=== PATIENT | female | born 1960 | race Caucasian/White ===

== ENCOUNTER 2017-09-04 16:03 | Emergency (ER) | payer MEDICAID ==
[2017-09-04 16:42] VITALS: BP 139/79
--- NOTE | 2017-09-04 17:17 | EDM.PDOC ---
ED HPI GENERAL MEDICAL PROBLEM - General Chief Complaint: General Stated Complaint: LETHARGIC,CONFUSION Time Seen by Provider: 09/04/17 17:05 Source of Information: Reports: Patient, RN Notes Reviewed History Limitations: Reports: No Limitations - History of Present Illness INITIAL COMMENTS - FREE TEXT/NARRATIVE: 57-year-old female presents emergency department day complaint of weakness and ill feeling, shortness of breath calmly on exertion this has progressively gotten worse over the last week she does have a history of heavy alcohol use but admits that she has cut down on her alcohol consumption to 3-4 days per week with 2-3 drinks per day, she used to drink daily. Does have a history of type 1 diabetes mellitus which is in poor control however since recently started an insulin pump it has helped her blood sugars. Also has peripheral neuropathy which has made it difficult for her to walk and she has fallen more frequently over the last couple of weeks Left Abdomen Pain Score (Numeric/FACES): 7 - Related Data Allergies Allergy/AdvReac Type Severity Reaction Status Date / Time adhesive tape Allergy Cannot Verified 09/04/17 16:43 Remember Home Meds: Home Meds ALPRAZolam [Xanax] 0.5 mg PO DAILY PRN 03/09/16 [History] Cholecalciferol (Vitamin D3) [Vitamin D3] 3,000 unit PO DAILY 03/09/16 [History] Folic Acid 0.4 mg PO DAILY 03/09/16 [History] Furosemide [Lasix] 40 mg PO BID 03/09/16 [History] Insulin Aspart [NovoLOG] 0 - 12 unit SUBCUT TIDAC 03/09/16 [History] Magnesium Oxide 800 mg PO BID 03/09/16 [History] Potassium Chloride [Potassium Chloride Solution] 30 ml PO DAILY 03/09/16 [ History] Spironolactone [Aldactone] 50 mg PO DAILY 03/09/16 [History] Melatonin 5 mg PO BEDTIME PRN 03/30/16 [History] Venlafaxine HCl [Venlafaxine ER] 75 mg PO TID PRN 09/04/17 [History] traMADol [Ultram] 50 mg PO TID PRN 09/04/17 [History] Past Medical History Cardiovascular History: Reports: Hypertension Gastrointestinal History: Reports: Cirrhosis, GERD, Other (See Below) Other Gastrointestinal History: diabetic diarrhea Genitourinary History: Reports: Renal Disease 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 Neurological History: Reports: Neuropathy, Diabetic Psychiatric History: Reports: Addiction, Anxiety Endocrine/Metabolic History: Reports: Diabetes, Type I, Obesity/BMI 30+ Dermatologic History: Reports: Venous Stasis Dermatitis - Infectious Disease History Infectious Disease History: Reports: Chicken Pox, Measles, Mumps - Past Surgical History Head Surgeries/Procedures: Reports: None HEENT Surgical History: Reports: Cataract Surgery Cardiovascular Surgical History: Reports: None GI Surgical History: Reports: Colonoscopy, EGD, Other (See Below) Female Surgical History: Reports: None Endocrine Surgical History: Reports: None Neurological Surgical History: Reports: None Dermatological Surgical History: Reports: None Social & Family History - Family History Family Medical History: Noncontributory - Tobacco Use Smoking Status *Q: Never Smoker Second Hand Smoke Exposure: No - Caffeine Use Caffeine Use: Reports: Coffee, Soda, Tea - Alcohol Use Days Per Week of Alcohol Use: 0 - Recreational Drug Use Recreational Drug Use: No ED ROS GENERAL - Review of Systems Review Of Systems: See Below Constitutional: Reports: No Symptoms HEENT: Reports: No Symptoms Respiratory: Reports: Shortness of Breath. Denies: Cough, Sputum Cardiovascular: Reports: Dyspnea on Exertion GI/Abdominal: Reports: No Symptoms : Reports: No Symptoms Musculoskeletal: Reports: No Symptoms Skin: Reports: No Symptoms Neurological: Reports: No Symptoms ED EXAM, GENERAL - Physical Exam Exam: See Below Free Text/Narrative:: General: Female appears older than her stated age, tremor bilateral, alert and oriented x3 HEENT: head is atraumatic normocephalic, eyes pupils equal round reactive to light, sclera clear no conjunctivitis appreciated. Ears tympanic membranes clear and posey landmarks and light reflex are present bilaterally canals are clear. Nose no septal deviation, nares are clear, no blood present. Mouth mucosa is moist and pink no erythema or exudate noted in soft palate, tongue is midline uvula is midline, dentition is intact. Neck: Supple no thyromegaly no tracheal deviation. Nodes: Cervical nodes subclavicular nodes nontender no palpable lymphadenopathy noted. Lungs: clear to auscultation bilaterally with symmetrical respirations, no adventitious noise appreciated. CV: Regular rate and rhythm S1 and S2 appreciated no murmurs rubs or gallops noted. Abdomen: Soft, nontender, no palpable masses or organomegaly appreciated, no distention no guarding bowel sounds are present, . Neuro: Cranial nerves II through XII grossly intact Skin: Warm and dry, intact Extremities: No lower extremity edema appreciated, Course - Vital Signs Last Recorded V/S: Last Vital Signs Temp 98.4 F 09/04/17 16:41 Pulse 105 H 09/04/17 16:41 Resp 20 09/04/17 16:41 BP 139/79 09/04/17 16:41 Pulse Ox 91 L 09/04/17 16:41 - Orders/Labs/Meds Orders: Active Orders 24 hr Category Date Time Status Cardiac Monitoring [RC] .As Directed Care 09/04/17 17:13 Active EKG Documentation Completion [RC] ASDIRECTED Care 09/04/17 17:14 Active Chest 2V [CR] Stat Exams 09/04/17 17:14 Taken CULTURE URINE [RM] Urgent Lab 09/04/17 18:10 Ordered EKG 12 Lead [EK] Stat Ther 09/04/17 17:14 Ordered Labs: Laboratory Tests 09/04/17 09/04/17 09/04/17 Range/Units 17:13 17:13 17:13 WBC 9.1 (4.5-11.0) K/uL RBC 3.81 (3.30-5.50) M/uL Hgb 12.2 D (12.0-15.0) g/dL Hct 35.8 L (36.0-48.0) % MCV 94 (80-98) fL MCH 32 H (27-31) pg MCHC 34 (32-36) % Plt Count 117 L (150-400) K/uL Neut % (Auto) 74 H (36-66) % Lymph % (Auto) 7 L (24-44) % [place] % (Auto) 19 H (2-6) % Eos % (Auto) 0 L (2-4) % Baso % (Auto) 0 (0-1) % Lactic Acid 2.4 H (0.4-2.0) mmol/L Troponin I < 0.017 (0.000-0.056) ng/mL NT-Pro-B Natriuret Pep 334 H (5-125) pg/mL Urine Color Urine Appearance Urine pH (4.5-8.0) Ur Specific [place] (1.008-1.030) Urine Protein (NEGATIVE) mg/dL Urine Glucose (UA) (NEGATIVE) mg/dL Urine Ketones (NEGATIVE) mg/dL Urine Occult Blood (NEGATIVE) Urine Nitrite (NEGATIVE) Urine Bilirubin (NEGATIVE) Urine Urobilinogen (NORMAL) mg/dL Ur Leukocyte Esterase (NEGATIVE) Urine RBC (0-5) Urine WBC (0-5) Ur Epithelial Cells Amorphous Sediment Urine Bacteria Urine Mucus Ethyl Alcohol mg/dL 09/04/17 09/04/17 Range/Units 17:14 17:37 WBC (4.5-11.0) K/uL RBC (3.30-5.50) M/uL Hgb (12.0-15.0) g/dL Hct (36.0-48.0) % MCV (80-98) fL MCH (27-31) pg MCHC (32-36) % Plt Count (150-400) K/uL Neut % (Auto) (36-66) % Lymph % (Auto) (24-44) % [place] % (Auto) (2-6) % Eos % (Auto) (2-4) % Baso % (Auto) (0-1) % Lactic Acid (0.4-2.0) mmol/L Troponin I (0.000-0.056) ng/mL NT-Pro-B Natriuret Pep (5-125) pg/mL Urine Color [place] Urine Appearance Cloudy Urine pH 5.0 (4.5-8.0) Ur Specific [place] 1.020 (1.008-1.030) Urine Protein Negative (NEGATIVE) mg/dL Urine Glucose (UA) 1000 H (NEGATIVE) mg/dL Urine Ketones 15 H (NEGATIVE) mg/dL Urine Occult Blood Moderate (NEGATIVE) Urine Nitrite Negative (NEGATIVE) Urine Bilirubin Negative (NEGATIVE) Urine Urobilinogen Normal (NORMAL) mg/dL Ur Leukocyte Esterase Small (NEGATIVE) Urine RBC 5-10 H (0-5) Urine WBC Packed H (0-5) Ur Epithelial Cells Moderate Amorphous Sediment Few Urine Bacteria Many Urine Mucus Few Ethyl Alcohol < 3 mg/dL Departure - Departure Time of Disposition: 18:22 Disposition: Home, Self-Care 01 Condition: Good Clinical Impression: Urinary tract infection Qualifiers: Urinary tract infection type: acute cystitis Hematuria presence: with hematuria Qualified Code(s): N30.01 - Acute cystitis with hematuria - Discharge Information Referrals: PCP,None [Primary Care Provider] - Forms: ED Department Discharge Additional Instructions: Take full course of antibiotics, Please followup with your primary care provider in 3-5 days if not better, please call return to the emergency department with worsening of symptoms. - My Orders Last 24 Hours: My Active Orders 09/04/17 17:13 Cardiac Monitoring [RC] .As Directed 09/04/17 17:14 EKG Documentation Completion [RC] ASDIRECTED Chest 2V [CR] Stat EKG 12 Lead [EK] Stat 09/04/17 18:10 CULTURE URINE [RM] Urgent - Assessment/Plan Last 24 Hours: My Active Orders 09/04/17 17:13 Cardiac Monitoring [RC] .As Directed 09/04/17 17:14 EKG Documentation Completion [RC] ASDIRECTED Chest 2V [CR] Stat EKG 12 Lead [EK] Stat 09/04/17 18:10 CULTURE URINE [RM] Urgent Plan: Assessment Acuity = acute Site and laterality = urinary tract infection complicated patient with diabetes mellitus type 1 and chronic alcohol abuse and dependence Etiology = probable bacterial cause Manifestations = none Location of injury = Home Lab values = platelets low at 112 consistent with thrombocytopenia lactic acid elevated 2.4 consistent lactic acidosis BNP elevated at 334 consistent mild fluid overload urinalysis reveals 15 ketones consistent with ketonuria, 5-10 rbc 's consistent hematuria and packed WBCs consistent pyuria cultures pending chest x-ray I did review films myself I cannot appreciate any acute process, the official read from radiology is pending Plan I did review lab work and urine as well as chest x-ray results with her she has multiple medical problems as well as comorbidities the alcohol use as well as the peripheral neuropathy do not help the situation I discussed both these issues with her I am going to treat her with levofloxacin for urinary tract infection however follow-up with her primary care in 3-5 days for reevaluation Patient was in agreement with the plan all questions were answered, they were instructed to return to the emergency department or call for worsening symptoms. This note was dictated using [employer] voice recognition software please call with any questions.
--- NOTE | 2017-09-06 08:49 | CR ---
Chest 2V INDICATION: Short of breath COMPARISON: None FINDINGS: 2 portable views of the chest. Heart size normal. No focal infiltrates or signs of pulmonary edema. Small right pleural effusion. There is a fracture of the right eighth rib which is slightly displaced. Old left rib fracture. ER notified with discrepancy function.
== END 2017-09-04 19:05 | disposition home or self-care (01) ==
LOC: JP.ED 16:03
DX: N30.01 Acute cystitis with hematuria (principal); I10 Essential (primary) hypertension; E10.9 Type 1 diabetes mellitus without complications; Z79.899 Other long term (current) drug therapy; Z91.048 Other nonmedicinal substance allergy status
CPT/HCPCS: 36415; 71020; 81001; 83605; 83880; 84484; 85025; 87086; 87088; 87186; 93005; 99284; G0480

== ENCOUNTER 2017-09-04 22:49 | Emergency (ER) | payer MEDICAID ==
[2017-09-04] MEDS ORDERED: Insulin Regular, Human 100 Units/ML 10 ML Vial IVPUSH ONE (23:14)
--- NOTE | 2017-09-04 23:21 | EDM.PDOC ---
ED HPI GENERAL MEDICAL PROBLEM - General Chief Complaint: Diabetic Complaint Stated Complaint: HIGH BLOOD SUGARS Time Seen by Provider: 09/04/17 23:05 Source of Information: Reports: Patient, EMS, Provider History Limitations: Reports: Altered Mental Status - History of Present Illness INITIAL COMMENTS - FREE TEXT/NARRATIVE: 57-year-old chronic alcoholic, type I diabetic, was in the emergency room earlier today after a fall and was found to have a UTI. Treatment was started but after getting home her family called back to the emergency room and asked if they could take her to detox. Officer felt the patient was physically able to be admitted for detox. However shortly after arriving, during her admitting procedure she was found to have a "high" glucose level, and the staff felt she was hallucinating and had a "seizure". EMS was called and she was brought in for evaluation. Her insulin pump has been nonfunctioning for the past 12 hours. She is not running fevers or chills, on arrival she was lucid, answering questions appropriately but was obviously anxious and had a fairly significant resting tremor. Severity: Moderate Associated Symptoms: Reports: Confusion (Mild intermittent confusion), Seizure, Other (Tremor). Denies: Fever/Chills, Headaches, Nausea/Vomiting right lower back Pain Score (Numeric/FACES): 7 - Related Data Allergies Allergy/AdvReac Type Severity Reaction Status Date / Time adhesive tape Allergy Cannot Verified 09/04/17 23:14 Remember Home Meds: Home Meds ALPRAZolam [Xanax] 0.5 mg PO DAILY PRN 03/09/16 [History] Cholecalciferol (Vitamin D3) [Vitamin D3] 3,000 unit PO DAILY 03/09/16 [History] Folic Acid 0.4 mg PO DAILY 03/09/16 [History] Furosemide [Lasix] 40 mg PO BID 03/09/16 [History] Insulin Aspart [NovoLOG] 0 - 12 unit SUBCUT TIDAC 03/09/16 [History] Magnesium Oxide 800 mg PO BID 03/09/16 [History] Potassium Chloride [Potassium Chloride Solution] 30 ml PO DAILY 03/09/16 [ History] Spironolactone [Aldactone] 50 mg PO DAILY 03/09/16 [History] Melatonin 5 mg PO BEDTIME PRN 03/30/16 [History] Venlafaxine HCl [Venlafaxine ER] 75 mg PO TID PRN 09/04/17 [History] traMADol [Ultram] 50 mg PO TID PRN 09/04/17 [History] Past Medical History HEENT History: Reports: None Cardiovascular History: Reports: Hypertension Gastrointestinal History: Reports: Cirrhosis, GERD, Other (See Below) Other Gastrointestinal History: diabetic diarrhea Genitourinary History: Reports: Renal Disease 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 Neurological History: Reports: Neuropathy, Diabetic Psychiatric History: Reports: Addiction, Anxiety Endocrine/Metabolic History: Reports: Diabetes, Type I, Obesity/BMI 30+ Dermatologic History: Reports: Venous Stasis Dermatitis - Infectious Disease History Infectious Disease History: Reports: Chicken Pox, Measles, Mumps - Past Surgical History Head Surgeries/Procedures: Reports: None HEENT Surgical History: Reports: Cataract Surgery Cardiovascular Surgical History: Reports: None GI Surgical History: Reports: Colonoscopy, EGD, Other (See Below) Female Surgical History: Reports: None Endocrine Surgical History: Reports: None Neurological Surgical History: Reports: None Dermatological Surgical History: Reports: None Social & Family History - Family History Family Medical History: Noncontributory - Tobacco Use Smoking Status *Q: Never Smoker Second Hand Smoke Exposure: No - Caffeine Use Caffeine Use: Reports: Coffee, Soda, Tea - Alcohol Use Days Per Week of Alcohol Use: 0 - Recreational Drug Use Recreational Drug Use: No ED ROS GENERAL - Review of Systems Review Of Systems: See Below Constitutional: Reports: Malaise, Decreased Appetite. Denies: Fever, Chills Respiratory: Denies: Shortness of Breath Cardiovascular: Denies: Chest Pain GI/Abdominal: Denies: Abdominal Pain, Nausea, Vomiting : Reports: Other (Diagnosis with UTI earlier tonight) Skin: Denies: Bruising Neurological: Reports: Confusion, Difficulty Walking. Denies: Dizziness, Headache ED EXAM GENERAL NO PERIP PULSE - Physical Exam Exam: See Below Exam Limited By: No Limitations General Appearance: Alert, No Apparent Distress, Anxious Eye Exam: Bilateral Eye: EOMI Respiratory/Chest: No Respiratory Distress, Lungs Clear Cardiovascular: Regular Rate, Rhythm, Tachycardia GI/Abdominal: Soft Neurological: Alert, Confused (Patient is confused to time of day, mild confusion on where she is at but has a very clear past history memory.) Skin Exam: Warm, Dry Course - Vital Signs Last Recorded V/S: Last Vital Signs Temp 97.9 F 09/05/17 01:51 Pulse 112 H 09/05/17 01:51 Resp 26 H 09/05/17 01:51 BP 106/58 L 09/05/17 01:51 Pulse Ox 94 L 09/05/17 01:51 - Orders/Labs/Meds Orders: Active Orders 24 hr Category Date Time Status Insert Paredes Catheter [Insert Urinary Catheter] [OM.PC] Care 09/05/17 02:00 Ordered Q24H Urinary Catheter Assessment [RC] ASDIRECTED Care 09/05/17 01:57 Active GLUCOSE POC LAB TO COLLECT [POC] Stat Lab 09/05/17 01:55 Ordered Labs: Laboratory Tests 09/04/17 Range/Units 23:40 Sodium 119 L* (140-148) mmol/L Potassium 3.9 (3.6-5.2) mmol/L Chloride 80 L (100-108) mmol/L Carbon Dioxide 21 (21-32) mmol/L Anion Gap 21.9 H (5.0-14.0) mmol/L BUN 42 H D (7-18) mg/dL Creatinine 1.6 H D (0.6-1.0) mg/dL Est Cr Clr Drug Dosing TNP Estimated GFR (MDRD) 33 L (>60) Glucose 808 H* (74-106) mg/dL Calcium 9.1 (8.5-10.1) mg/dL Magnesium 2.1 (1.8-2.4) mg/dL Total Bilirubin 1.6 H D (0.2-1.0) mg/dL AST 58 H D (15-37) U/L ALT 64 D (12-78) U/L Alkaline Phosphatase 144 H (46-116) U/L Total Protein 6.9 (6.4-8.2) g/dL Albumin 2.9 L (3.4-5.0) g/dL Globulin 4.0 H (2.3-3.5) g/dL Albumin/Globulin Ratio 0.7 L (1.2-2.2) Meds: Medications Discontinued Medications Generic Name Dose Route Start Last Admin Trade Name Freq PRN Reason Stop Dose Admin Haloperidol Lactate 5 mg 09/05/17 01:55 09/05/17 02:06 Haldol IVPUSH 09/05/17 01:56 5 mg ONETIME ONE Administration Sodium Chloride 1,000 mls @ 250 mls/hr 09/05/17 00:15 09/05/17 01:37 Normal Saline IV 999 mls/hr ASDIRECTED MENDEZ Infusion Sodium Chloride 1,000 mls @ 999 mls/hr 09/05/17 01:39 09/05/17 01:40 Normal Saline IV 09/05/17 02:39 999 mls/hr .BOLUS ONE Administration Insulin Detemir 20 unit 09/04/17 23:27 09/04/17 23:32 Levemir SUBCUT 09/04/17 23:28 20 units ONETIME ONE Administration Insulin Human Regular 12 unit 09/04/17 23:14 09/04/17 23:25 Novolin R IVPUSH 09/04/17 23:15 12 units ONETIME ONE Administration Protocol Insulin Human Regular 12 unit 09/05/17 02:05 09/05/17 02:09 Novolin R IVPUSH 09/05/17 02:06 12 units ONETIME ONE Administration Protocol Lorazepam 1 mg 09/05/17 00:24 09/05/17 00:34 Ativan IVPUSH 09/05/17 00:25 1 mg ONETIME ONE Administration Lorazepam 2 mg 09/05/17 01:20 09/05/17 01:37 Ativan IVPUSH 09/05/17 01:21 2 mg ONETIME ONE Administration - Re-Assessments/Exams Free Text/Narrative Re-Assessment/Exam: 09/04/17 23:54 Initial [id number] glucose was over 500. According to the patient she gets a basal 0.75 units per hour dose of long-acting insulin which she has not gotten for the past 12-18 hours. She also takes Humalog 3 times a day. Review of earlier records shows no chemistry panel her magnesium was drawn so these were obtained, the patient was given 12 units of Humalog IV, and 16 units of Levemir subcutaneously. 09/05/17 01:24 Chemistry panel revealed a glucose of 808, anion gap 21.9, sodium 119. Patient was becoming more agitated and confused so was given 1 mg of Ativan IV and normal saline was started. Intent was to get her glucose better controlled, her sodium normalized so she could get back to detox however she became more agitated so transfer to [facility] was arranged. 09/05/17 01:42 After the conversation with the hospitalist at [facility], the patient was aggressively bolused with an additional 1-1/2 L of normal saline over the next 45 minutes to an hour. She was also given 2 mg of Ativan IV. Patient was arranged for transportation. Departure - Departure Time of Disposition: 02:57 Disposition: DC/Tfer to Other 70 Condition: Poor Clinical Impression: Hyperglycemia, Alcohol withdrawal delirium - Discharge Information Referrals: PCP,None [Primary Care Provider] - Forms: ED Department Discharge - My Orders Last 24 Hours: My Active Orders 09/05/17 01:55 GLUCOSE POC LAB TO COLLECT [POC] Stat 09/05/17 01:57 Urinary Catheter Assessment [RC] ASDIRECTED 09/05/17 02:00 Insert Paredes Catheter [Insert Urinary Catheter] [OM.PC] Q24H - Assessment/Plan Last 24 Hours: My Active Orders 09/05/17 01:55 GLUCOSE POC LAB TO COLLECT [POC] Stat 09/05/17 01:57 Urinary Catheter Assessment [RC] ASDIRECTED 09/05/17 02:00 Insert Paredes Catheter [Insert Urinary Catheter] [OM.PC] Q24H
[2017-09-04] MEDS ORDERED: Insulin Detemir 100 Units/ML 3 ML Pen SUBCUT ONE (23:27)
[2017-09-05] MEDS ORDERED: Sodium Chloride 0.9% 1,000 ML IV SCH (00:15)
[2017-09-05] MEDS ORDERED: LORazepam 2 MG/ML MDV IVPUSH ONE ×2 (00:24→01:20)
[2017-09-05] MEDS ORDERED: Sodium Chloride 0.9% 1,000 ML IV ONE (01:39)
[2017-09-05 01:52] VITALS: BP 106/58
[2017-09-05] MEDS ORDERED: Haloperidol Lactate 5 MG/ML SDV IVPUSH ONE (01:55)
[2017-09-05] MEDS ORDERED: Insulin Regular, Human 100 Units/ML 10 ML Vial IVPUSH ONE (02:05)
== END 2017-09-05 02:35 | disposition other institution (70) ==
LOC: JP.ED 22:49
DX: E10.65 Type 1 diabetes mellitus with hyperglycemia (principal); K21.9 Gastro-esophageal reflux disease without esophagitis; I10 Essential (primary) hypertension; Z91.048 Other nonmedicinal substance allergy status; F10.231 Alcohol dependence with withdrawal delirium; N30.01 Acute cystitis with hematuria; E10.9 Type 1 diabetes mellitus without complications; Z79.899 Other long term (current) drug therapy
CPT/HCPCS: 36415; 51702; 71020; 80053; 81001; 82962; 83605; 83735; 83880; 84484; 85025; 87086; 87088; 87186; 93005; 96361; 96374; 96375; 96376; 99284; 99285; A9270; G0480; J1630; J2060; J7040

== ENCOUNTER 2019-03-20 21:38 | Inpatient (IN) | payer MEDICAID, MEDICARE ==
--- NOTE | 2019-03-20 22:16 | EDM.PDOC ---
ED HPI GENERAL MEDICAL PROBLEM - General Chief Complaint: General Stated Complaint: MEDICAL Time Seen by Provider: 03/20/19 22:04 Source of Information: Reports: Patient, Old Records, RN Notes Reviewed History Limitations: Reports: Intoxication - History of Present Illness INITIAL COMMENTS - FREE TEXT/NARRATIVE: 58-year-old female presents emergency department today via EMS services she has a known history of alcoholic liver cirrhosis has been on 40 binge having difficulty maintaining her blood sugars called the ambulance because she felt tremulous. She does admit that she would like to go to detox and would like to seek treatment or alcohol use - Related Data Allergies Allergy/AdvReac Type Severity Reaction Status Date / Time adhesive tape Allergy Cannot Verified 09/04/17 23:14 Remember lorazepam [From Ativan] Allergy Agitation Verified 09/05/17 07:17 Home Meds: Home Meds ALPRAZolam [Xanax] 0.5 mg PO DAILY PRN 03/09/16 [History] Cholecalciferol (Vitamin D3) [Vitamin D3] 3,000 unit PO DAILY 03/09/16 [History] Insulin Aspart [NovoLOG] 0 - 12 unit SUBCUT TIDAC 03/09/16 [History] Magnesium Oxide 800 mg PO BID 03/09/16 [History] Past Medical History Cardiovascular History: Reports: Hypertension Gastrointestinal History: Reports: Cirrhosis, GERD, Other (See Below) Other Gastrointestinal History: diabetic diarrhea Genitourinary History: Reports: Renal Disease 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 Musculoskeletal History: Reports: Back Pain, Chronic Neurological History: Reports: Neuropathy, Diabetic Psychiatric History: Reports: Addiction, Anxiety Endocrine/Metabolic History: Reports: Diabetes, Type I, Obesity/BMI 30+ Dermatologic History: Reports: Venous Stasis Dermatitis - Infectious Disease History Infectious Disease History: Reports: Chicken Pox, Measles, Mumps - Past Surgical History Head Surgeries/Procedures: Reports: None HEENT Surgical History: Reports: Cataract Surgery Cardiovascular Surgical History: Reports: None GI Surgical History: Reports: Colonoscopy, EGD, Other (See Below) Female Surgical History: Reports: None Endocrine Surgical History: Reports: None Neurological Surgical History: Reports: None Dermatological Surgical History: Reports: None Social & Family History - Family History Family Medical History: Noncontributory - Tobacco Use Smoking Status *Q: Never Smoker - Caffeine Use Caffeine Use: Reports: Coffee, Soda, Tea - Alcohol Use Days Per Week of Alcohol Use: 4 Number of Drinks Per Day: 10 Total Drinks Per Week: 40 Date of Last Drink: 03/19/19 - Recreational Drug Use Recreational Drug Use: No ED ROS GENERAL - Review of Systems Review Of Systems: See Below Constitutional: Reports: No Symptoms HEENT: Reports: No Symptoms Respiratory: Reports: No Symptoms Cardiovascular: Reports: No Symptoms GI/Abdominal: Reports: No Symptoms : Reports: No Symptoms Musculoskeletal: Reports: No Symptoms Skin: Reports: No Symptoms Neurological: Reports: Confusion, Tremors ED EXAM, GENERAL - Physical Exam Exam: See Below Exam Limited By: Intoxication General Appearance: Alert, No Apparent Distress Eye Exam: Bilateral Eye: Normal Inspection Head: Atraumatic, Normocephalic Neck: Normal Inspection, Supple, Non-Tender, Full Range of Motion Respiratory/Chest: No Respiratory Distress, Lungs Clear, Normal Breath Sounds, No Accessory Muscle Use, Chest Non-Tender Cardiovascular: Normal Peripheral Pulses, No Murmur, Tachycardia GI/Abdominal: Soft, Distended. No: Guarding, Rigid, Rebound, Tender Extremities: Normal Inspection, Normal Range of Motion, Non-Tender Course - Vital Signs Last Recorded V/S: Last Vital Signs Temp 96.0 F 03/20/19 21:48 Pulse 60 03/20/19 23:19 Resp 23 H 03/20/19 23:04 BP 101/43 L 03/20/19 23:19 Pulse Ox 97 03/20/19 23:04 - Orders/Labs/Meds Orders: Active Orders 24 hr Category Date Time Status Peripheral IV Care [RC] . DIRECTED Care 03/20/19 22:54 Active LIPASE [CHEM] Stat Lab 03/20/19 23:40 Ordered Lactated Ringers [Ringers, Lactated] 1,000 ml Med 03/20/19 22:54 Active IV BOLUS Sodium Chloride 0.9% [Saline Flush] Med 03/20/19 22:54 Active 10 ml FLUSH ASDIRECTED PRN Peripheral IV Insertion Adult [OM.PC] Urgent Oth 03/20/19 22:54 Ordered Medication Orders Lactated Ringer's (Ringers, Lactated) 1,000 mls @ 250 mls/hr IV BOLUS ONE Stop: 03/21/19 02:53 Last Admin: 03/20/19 23:05 Dose: 250 mls/hr Sodium Chloride (Saline Flush) 10 ml FLUSH ASDIRECTED PRN PRN Reason: Keep Vein Open Last Admin: 03/20/19 23:09 Dose: 10 ml Labs: Laboratory Tests 03/20/19 03/20/19 03/20/19 Range/Units 22:24 22:24 22:24 WBC 5.3 (4.5-11.0) K/uL RBC 3.65 (3.30-5.50) M/uL Hgb 12.2 (12.0-15.0) g/dL Hct 37.3 (36.0-48.0) % MCV 102 H (80-98) fL MCH 33 H (27-31) pg MCHC 33 (32-36) % Plt Count 70 L (150-400) K/uL Neut % (Auto) 83 H (36-66) % Lymph % (Auto) 9 L (24-44) % [place] % (Auto) 8 H (2-6) % Eos % (Auto) 0 L (2-4) % Baso % (Auto) 0 (0-1) % PT (9.5-12.0) sec INR (0.80-1.20) Sodium 125 L (140-148) mmol/L Potassium 4.9 (3.6-5.2) mmol/L Chloride 81 L (100-108) mmol/L Carbon Dioxide 11 L (21-32) mmol/L Anion Gap 37.9 H (5.0-14.0) mmol/L BUN 14 D (7-18) mg/dL Creatinine 2.1 H (0.6-1.0) mg/dL Est Cr Clr Drug Dosing 28.74 mL/min Estimated GFR (MDRD) 24 L (>60) Glucose 377 H (74-106) mg/dL Lactic Acid (0.4-2.0) mmol/L Calcium 7.9 L (8.5-10.1) mg/dL Total Bilirubin 2.8 H D (0.2-1.0) mg/dL AST 163 H D (15-37) U/L ALT 79 H (12-78) U/L Alkaline Phosphatase 194 H (46-116) U/L Troponin I (0.000-0.056) ng/mL Total Protein 7.5 (6.4-8.2) g/dL Albumin 2.7 L (3.4-5.0) g/dL Globulin 4.8 H (2.3-3.5) g/dL Albumin/Globulin Ratio 0.6 L (1.2-2.2) TSH, Ultra Sensitive (0.358-3.740) uIU/mL Urine Color Urine Appearance Urine pH (4.5-8.0) Ur Specific [place] (1.008-1.030) Urine Protein (NEGATIVE) mg/dL Urine Glucose (UA) (NEGATIVE) mg/dL Urine Ketones (NEGATIVE) mg/dL Urine Occult Blood (NEGATIVE) Urine Nitrite (NEGATIVE) Urine Bilirubin (NEGATIVE) Urine Urobilinogen (NORMAL) mg/dL Ur Leukocyte Esterase (NEGATIVE) Urine RBC (0-5) Urine WBC (0-5) Ur Epithelial Cells Amorphous Sediment Urine Bacteria Urine Mucus Urine Opiates Screen (NEGATIVE) Ur Oxycodone Screen (NEGATIVE) Urine Methadone Screen (NEGATIVE) Ur Propoxyphene Screen (NEGATIVE) Ur Barbiturates Screen (NEGATIVE) Ur Tricyclics Screen (NEGATIVE) Ur Phencyclidine Scrn (NEGATIVE) Ur Amphetamine Screen (NEGATIVE) U Methamphetamines Scrn (NEGATIVE) Urine MDMA Screen (NEGATIVE) U Benzodiazepines Scrn (NEGATIVE) U Cocaine Metab Screen (NEGATIVE) U Marijuana (THC) Screen (NEGATIVE) Ethyl Alcohol 211 mg/dL 03/20/19 03/20/19 03/20/19 Range/Units 22:24 22:24 22:24 WBC (4.5-11.0) K/uL RBC (3.30-5.50) M/uL Hgb (12.0-15.0) g/dL Hct (36.0-48.0) % MCV (80-98) fL MCH (27-31) pg MCHC (32-36) % Plt Count (150-400) K/uL Neut % (Auto) (36-66) % Lymph % (Auto) (24-44) % [place] % (Auto) (2-6) % Eos % (Auto) (2-4) % Baso % (Auto) (0-1) % PT > 100.0 H (9.5-12.0) sec INR (0.80-1.20) Sodium (140-148) mmol/L Potassium (3.6-5.2) mmol/L Chloride (100-108) mmol/L Carbon Dioxide (21-32) mmol/L Anion Gap (5.0-14.0) mmol/L BUN (7-18) mg/dL Creatinine (0.6-1.0) mg/dL Est Cr Clr Drug Dosing mL/min Estimated GFR (MDRD) (>60) Glucose (74-106) mg/dL Lactic Acid (0.4-2.0) mmol/L Calcium (8.5-10.1) mg/dL Total Bilirubin (0.2-1.0) mg/dL AST (15-37) U/L ALT (12-78) U/L Alkaline Phosphatase (46-116) U/L Troponin I 0.048 (0.000-0.056) ng/mL Total Protein (6.4-8.2) g/dL Albumin (3.4-5.0) g/dL Globulin (2.3-3.5) g/dL Albumin/Globulin Ratio (1.2-2.2) TSH, Ultra Sensitive 2.657 (0.358-3.740) uIU/mL Urine Color Urine Appearance Urine pH (4.5-8.0) Ur Specific [place] (1.008-1.030) Urine Protein (NEGATIVE) mg/dL Urine Glucose (UA) (NEGATIVE) mg/dL Urine Ketones (NEGATIVE) mg/dL Urine Occult Blood (NEGATIVE) Urine Nitrite (NEGATIVE) Urine Bilirubin (NEGATIVE) Urine Urobilinogen (NORMAL) mg/dL Ur Leukocyte Esterase (NEGATIVE) Urine RBC (0-5) Urine WBC (0-5) Ur Epithelial Cells Amorphous Sediment Urine Bacteria Urine Mucus Urine Opiates Screen (NEGATIVE) Ur Oxycodone Screen (NEGATIVE) Urine Methadone Screen (NEGATIVE) Ur Propoxyphene Screen (NEGATIVE) Ur Barbiturates Screen (NEGATIVE) Ur Tricyclics Screen (NEGATIVE) Ur Phencyclidine Scrn (NEGATIVE) Ur Amphetamine Screen (NEGATIVE) U Methamphetamines Scrn (NEGATIVE) Urine MDMA Screen (NEGATIVE) U Benzodiazepines Scrn (NEGATIVE) U Cocaine Metab Screen (NEGATIVE) U Marijuana (THC) Screen (NEGATIVE) Ethyl Alcohol mg/dL 03/20/19 03/20/19 03/20/19 Range/Units 22:49 22:49 23:02 WBC (4.5-11.0) K/uL RBC (3.30-5.50) M/uL Hgb (12.0-15.0) g/dL Hct (36.0-48.0) % MCV (80-98) fL MCH (27-31) pg MCHC (32-36) % Plt Count (150-400) K/uL Neut % (Auto) (36-66) % Lymph % (Auto) (24-44) % [place] % (Auto) (2-6) % Eos % (Auto) (2-4) % Baso % (Auto) (0-1) % PT (9.5-12.0) sec INR (0.80-1.20) Sodium (140-148) mmol/L Potassium (3.6-5.2) mmol/L Chloride (100-108) mmol/L Carbon Dioxide (21-32) mmol/L Anion Gap (5.0-14.0) mmol/L BUN (7-18) mg/dL Creatinine (0.6-1.0) mg/dL Est Cr Clr Drug Dosing mL/min Estimated GFR (MDRD) (>60) Glucose (74-106) mg/dL Lactic Acid 19.7 H (0.4-2.0) mmol/L Calcium (8.5-10.1) mg/dL Total Bilirubin (0.2-1.0) mg/dL AST (15-37) U/L ALT (12-78) U/L Alkaline Phosphatase (46-116) U/L Troponin I (0.000-0.056) ng/mL Total Protein (6.4-8.2) g/dL Albumin (3.4-5.0) g/dL Globulin (2.3-3.5) g/dL Albumin/Globulin Ratio (1.2-2.2) TSH, Ultra Sensitive (0.358-3.740) uIU/mL Urine Color Yellow Urine Appearance Cloudy Urine pH 5.0 (4.5-8.0) Ur Specific [place] 1.025 (1.008-1.030) Urine Protein Negative (NEGATIVE) mg/dL Urine Glucose (UA) Normal (NEGATIVE) mg/dL Urine Ketones Negative (NEGATIVE) mg/dL Urine Occult Blood Large (NEGATIVE) Urine Nitrite Negative (NEGATIVE) Urine Bilirubin Negative (NEGATIVE) Urine Urobilinogen 4 (NORMAL) mg/dL Ur Leukocyte Esterase Negative (NEGATIVE) Urine RBC 0-5 (0-5) Urine WBC 0-5 (0-5) Ur Epithelial Cells Moderate Amorphous Sediment Not seen Urine Bacteria Many Urine Mucus Not seen Urine Opiates Screen Presumptive positive H (NEGATIVE) Ur Oxycodone Screen Negative (NEGATIVE) Urine Methadone Screen Negative (NEGATIVE) Ur Propoxyphene Screen Negative (NEGATIVE) Ur Barbiturates Screen Negative (NEGATIVE) Ur Tricyclics Screen Negative (NEGATIVE) Ur Phencyclidine Scrn Negative (NEGATIVE) Ur Amphetamine Screen Negative (NEGATIVE) U Methamphetamines Scrn Negative (NEGATIVE) Urine MDMA Screen Negative (NEGATIVE) U Benzodiazepines Scrn Negative (NEGATIVE) U Cocaine Metab Screen Negative (NEGATIVE) U Marijuana (THC) Screen Negative (NEGATIVE) Ethyl Alcohol mg/dL Meds: Medications Generic Name Dose Route Start Last Admin Trade Name Freq PRN Reason Stop Dose Admin Lactated Ringer's 1,000 mls @ 250 mls/hr 03/20/19 22:54 03/20/19 23:05 Ringers, Lactated IV 03/21/19 02:53 250 mls/hr BOLUS ONE Administration Sodium Chloride 10 ml 03/20/19 22:54 03/20/19 23:09 Saline Flush FLUSH 10 ml ASDIRECTED PRN Administration Keep Vein Open Discontinued Medications Generic Name Dose Route Start Last Admin Trade Name Freq PRN Reason Stop Dose Admin Gabapentin 300 mg 03/20/19 23:29 Neurontin PO 03/20/19 23:30 ONETIME ONE Lorazepam 1 mg 03/20/19 23:28 Ativan IVPUSH 03/20/19 23:29 ONETIME ONE Departure - Departure Time of Disposition: 23:45 Disposition: Admitted As Inpatient 67 Condition: Poor Clinical Impression: Alcohol withdrawal delirium - Discharge Information Referrals: PCP,None [Primary Care Provider] - Forms: ED Department Discharge - My Orders Last 24 Hours: My Active Orders 03/20/19 22:54 Peripheral IV Care [RC] . DIRECTED Lactated Ringers [Ringers, Lactated] 1,000 ml IV BOLUS Sodium Chloride 0.9% [Saline Flush] 10 ml FLUSH ASDIRECTED PRN Peripheral IV Insertion Adult [OM.PC] Urgent 03/20/19 23:40 LIPASE [CHEM] Stat - Assessment/Plan Last 24 Hours: My Active Orders 03/20/19 22:54 Peripheral IV Care [RC] . DIRECTED Lactated Ringers [Ringers, Lactated] 1,000 ml IV BOLUS Sodium Chloride 0.9% [Saline Flush] 10 ml FLUSH ASDIRECTED PRN Peripheral IV Insertion Adult [OM.PC] Urgent 03/20/19 23:40 LIPASE [CHEM] Stat Plan: Assessment Acuity = acute Site and laterality = alcohol intoxication complicated with alcoholic hepatic cirrhosis Etiology = EtOH Manifestations = liver failure Location of injury = Home Lab values = platelets low at 78 consistent thrombocytopenia, PT and INR not measurable sodium low at 125 consistent hyponatremia creatinine 2.1 consistent with chronic renal failure stage G for glucose elevated 377 consistent hyperglycemia lactic acids elevated 19.7 with lactic acidosis calcium low at 7.9 consistent hypocalcemia total bilirubin elevated 2.8 consistent hyperbilirubinemia AST elevated 163 LT elevated 79 consistent elevated liver enzymes albumin low at 2.8 consistent hypoalbuminemia troponin is negative TSH normal 265 urine unremarkable urine drug screen positive for opiates alcohol level was 211 Plan Called discussed case hospitalist labor relations manager at 22/12/39 he agreed to come and evaluate patient emergency department for admission This note was dictated using [employer] voice recognition software please call with any questions on syntax or grammar.
[2019-03-20] MEDS ORDERED: Lactated Ringers 1,000 ML IV ONE (22:54)
[2019-03-20] MEDS ORDERED: Sodium Chloride 0.9% 10 ML Syringe FLUSH PRN (22:54)
[2019-03-20] MEDS ORDERED: LORazepam 2 MG/ML SDV IVPUSH ONE (23:28)
[2019-03-20] MEDS ORDERED: Gabapentin 300 MG Cap PO ONE (23:29)
--- NOTE | 2019-03-21 00:52 | PCM.HP ---
H&P History of Present Illness - General Date of Service: 03/21/19 Admit Problem/Dx: Admission Diagnosis/Problem Admission Diagnosis/Problem Alcohol withdrawal delirium Source of Information: Patient, Provider History Limitations: Reports: Altered Mental Status - History of Present Illness Initial Comments - Free Text/Narative: CC: just.....confused HPI: Kate presents to the emergency room tonight with a chief complaint of confusion. She is very lethargic at this time and history that I gathered from her was very limited. History is gathered from emergency room providers. Per report she has been on an alcohol binge for at least the last 4 days. Alcohol choice and quantity of consumption is not known at this time. She came in today because she's been more confused for the past 24 hours or so. She does not endorse any pain at this time but that was really the only question that she is able to answer. She does not appear to have any obvious evidence for trauma other than some abrasions on her left leg. During questioning she just keeps repeating "confused". Workup in the emergency room has consisted mostly of blood and urine testing. She has thrombocytopenia, an INR that is too high to calculate at this time, lactic acid level of nearly 20, a creatinine of 2.1 as well as evidence for alcoholic hepatitis with elevated bilirubin and AST. Ammonia is elevated at 90. There is no evidence to suggest infection based on urinalysis at this time. Head CT did not reveal any acute intracranial pathology. There is some tremor and concern for alcohol withdrawal and treatment has begun in the emergency room. She'll be admitted to the intensive care unit for management of alcohol withdrawal delirium, acute kidney injury, coagulopathy. - Related Data Allergies/Adverse Reactions: Allergies Allergy/AdvReac Type Severity Reaction Status Date / Time adhesive tape Allergy Cannot Verified 09/04/17 23:14 Remember lorazepam [From Ativan] Allergy Agitation Verified 09/05/17 07:17 Home Medications: Home Meds ALPRAZolam [Xanax] 0.5 mg PO DAILY PRN 03/09/16 [History] Cholecalciferol (Vitamin D3) [Vitamin D3] 3,000 unit PO DAILY 03/09/16 [History] Insulin Aspart [NovoLOG] 0 - 12 unit SUBCUT TIDAC 03/09/16 [History] Magnesium Oxide 800 mg PO BID 03/09/16 [History] Past Medical History HEENT History: Reports: None Cardiovascular History: Reports: Hypertension Gastrointestinal History: Reports: Cirrhosis, GERD, Other (See Below) Other Gastrointestinal History: diabetic diarrhea Genitourinary History: Reports: Renal Disease 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 Musculoskeletal History: Reports: Back Pain, Chronic Neurological History: Reports: Neuropathy, Diabetic Psychiatric History: Reports: Addiction, Anxiety Endocrine/Metabolic History: Reports: Diabetes, Type I, Obesity/BMI 30+ Dermatologic History: Reports: Venous Stasis Dermatitis - Infectious Disease History Infectious Disease History: Reports: Chicken Pox, Measles, Mumps - Past Surgical History Head Surgeries/Procedures: Reports: None HEENT Surgical History: Reports: Cataract Surgery Cardiovascular Surgical History: Reports: None GI Surgical History: Reports: Colonoscopy, EGD, Other (See Below) Female Surgical History: Reports: None Endocrine Surgical History: Reports: None Neurological Surgical History: Reports: None Dermatological Surgical History: Reports: None Social & Family History - Family History Family Medical History: Noncontributory - Tobacco Use Smoking Status *Q: Never Smoker - Caffeine Use Caffeine Use: Reports: Coffee, Soda, Tea - Alcohol Use Days Per Week of Alcohol Use: 4 Number of Drinks Per Day: 10 Total Drinks Per Week: 40 Date of Last Drink: 03/19/19 - Recreational Drug Use Recreational Drug Use: No H&P Review of Systems - Review of Systems: Review Of Systems: Unable To Obtain (Patient is very lethargic) Exam - Exam Exam: See Below - Vital Signs Vital Signs: Last Vital Signs Temp 35.6 C 03/20/19 21:48 Pulse 89 03/21/19 00:07 Resp 14 03/21/19 00:07 BP 126/48 L 03/21/19 00:07 Pulse Ox 97 03/21/19 00:07 Weight: 81.647 kg - Exam Quality Assessment: No: Supplemental Oxygen General: Alert, Lethargic. No: Oriented, Cooperative, Mild Distress HEENT: PERRLA, Conjunctiva Clear, Scleral Icterus (mild). No: Mucosa Moist & [place] (dry) Neck: Supple, Trachea Midline. No: Lymphadenopathy Lungs: Clear to Auscultation, Normal Respiratory Effort Cardiovascular: Regular Rate, Regular Rhythm. No: Systolic Murmur GI/Abdominal Exam: Non-Tender, Distended. No: Soft Extremities: Pedal Edema. No: Increased Warmth Peripheral Pulses: 1+: Dorsalis Pedis (L), Dorsalis Pedis (R) Skin: Warm, Dry, Wound (Abrasions on the left lower leg), Other (Spider angiomata on the chest) Neuro Extensive - Mental Status: Alert, Slow Response to Commands. No: Oriented x3 Neuro Extensive - Motor, Sensory, Reflexes: Dysarthria, Tremor (Mild hand tremor ), Other (No asterixis). No: Abnormal Motor Psychiatric: Alert (But somnolent). No: Agitated - Patient Data Lab Results Last 24 hrs: Laboratory Results - last 24 hr 03/20/19 03/20/19 03/20/19 Range/Units 22:24 22:24 22:24 WBC 5.3 (4.5-11.0) K/uL RBC 3.65 (3.30-5.50) M/uL Hgb 12.2 (12.0-15.0) g/dL Hct 37.3 (36.0-48.0) % MCV 102 H (80-98) fL MCH 33 H (27-31) pg MCHC 33 (32-36) % Plt Count 70 L (150-400) K/uL Neut % (Auto) 83 H (36-66) % Lymph % (Auto) 9 L (24-44) % Sutter % (Auto) 8 H (2-6) % Eos % (Auto) 0 L (2-4) % Baso % (Auto) 0 (0-1) % PT (9.5-12.0) sec INR (0.80-1.20) Sodium 125 L (140-148) mmol/L Potassium 4.9 (3.6-5.2) mmol/L Chloride 81 L (100-108) mmol/L Carbon Dioxide 11 L (21-32) mmol/L Anion Gap 37.9 H (5.0-14.0) mmol/L BUN 14 D (7-18) mg/dL Creatinine 2.1 H (0.6-1.0) mg/dL Est Cr Clr Drug Dosing 28.74 mL/min Estimated GFR (MDRD) 24 L (>60) Glucose 377 H (74-106) mg/dL Lactic Acid (0.4-2.0) mmol/L Calcium 7.9 L (8.5-10.1) mg/dL Total Bilirubin 2.8 H D (0.2-1.0) mg/dL AST 163 H D (15-37) U/L ALT 79 H (12-78) U/L Alkaline Phosphatase 194 H (46-116) U/L Troponin I (0.000-0.056) ng/mL Total Protein 7.5 (6.4-8.2) g/dL Albumin 2.7 L (3.4-5.0) g/dL Globulin 4.8 H (2.3-3.5) g/dL Albumin/Globulin Ratio 0.6 L (1.2-2.2) Lipase (73-393) U/L TSH, Ultra Sensitive (0.358-3.740) uIU/mL Urine Color Urine Appearance Urine pH (4.5-8.0) Ur Specific [place] (1.008-1.030) Urine Protein (NEGATIVE) mg/dL Urine Glucose (UA) (NEGATIVE) mg/dL Urine Ketones (NEGATIVE) mg/dL Urine Occult Blood (NEGATIVE) Urine Nitrite (NEGATIVE) Urine Bilirubin (NEGATIVE) Urine Urobilinogen (NORMAL) mg/dL Ur Leukocyte Esterase (NEGATIVE) Urine RBC (0-5) Urine WBC (0-5) Ur Epithelial Cells Amorphous Sediment Urine Bacteria Urine Mucus Urine Opiates Screen (NEGATIVE) Ur Oxycodone Screen (NEGATIVE) Urine Methadone Screen (NEGATIVE) Ur Propoxyphene Screen (NEGATIVE) Ur Barbiturates Screen (NEGATIVE) Ur Tricyclics Screen (NEGATIVE) Ur Phencyclidine Scrn (NEGATIVE) Ur Amphetamine Screen (NEGATIVE) U Methamphetamines Scrn (NEGATIVE) Urine MDMA Screen (NEGATIVE) U Benzodiazepines Scrn (NEGATIVE) U Cocaine Metab Screen (NEGATIVE) U Marijuana (THC) Screen (NEGATIVE) Ethyl Alcohol 211 mg/dL 03/20/19 03/20/19 03/20/19 Range/Units 22:24 22:24 22:24 WBC (4.5-11.0) K/uL RBC (3.30-5.50) M/uL Hgb (12.0-15.0) g/dL Hct (36.0-48.0) % MCV (80-98) fL MCH (27-31) pg MCHC (32-36) % Plt Count (150-400) K/uL Neut % (Auto) (36-66) % Lymph % (Auto) (24-44) % Sutter % (Auto) (2-6) % Eos % (Auto) (2-4) % Baso % (Auto) (0-1) % PT > 100.0 H (9.5-12.0) sec INR (0.80-1.20) Sodium (140-148) mmol/L Potassium (3.6-5.2) mmol/L Chloride (100-108) mmol/L Carbon Dioxide (21-32) mmol/L Anion Gap (5.0-14.0) mmol/L BUN (7-18) mg/dL Creatinine (0.6-1.0) mg/dL Est Cr Clr Drug Dosing mL/min Estimated GFR (MDRD) (>60) Glucose (74-106) mg/dL Lactic Acid (0.4-2.0) mmol/L Calcium (8.5-10.1) mg/dL Total Bilirubin (0.2-1.0) mg/dL AST (15-37) U/L ALT (12-78) U/L Alkaline Phosphatase (46-116) U/L Troponin I 0.048 (0.000-0.056) ng/mL Total Protein (6.4-8.2) g/dL Albumin (3.4-5.0) g/dL Globulin (2.3-3.5) g/dL Albumin/Globulin Ratio (1.2-2.2) Lipase (73-393) U/L TSH, Ultra Sensitive 2.657 (0.358-3.740) uIU/mL Urine Color Urine Appearance Urine pH (4.5-8.0) Ur Specific [place] (1.008-1.030) Urine Protein (NEGATIVE) mg/dL Urine Glucose (UA) (NEGATIVE) mg/dL Urine Ketones (NEGATIVE) mg/dL Urine Occult Blood (NEGATIVE) Urine Nitrite (NEGATIVE) Urine Bilirubin (NEGATIVE) Urine Urobilinogen (NORMAL) mg/dL Ur Leukocyte Esterase (NEGATIVE) Urine RBC (0-5) Urine WBC (0-5) Ur Epithelial Cells Amorphous Sediment Urine Bacteria Urine Mucus Urine Opiates Screen (NEGATIVE) Ur Oxycodone Screen (NEGATIVE) Urine Methadone Screen (NEGATIVE) Ur Propoxyphene Screen (NEGATIVE) Ur Barbiturates Screen (NEGATIVE) Ur Tricyclics Screen (NEGATIVE) Ur Phencyclidine Scrn (NEGATIVE) Ur Amphetamine Screen (NEGATIVE) U Methamphetamines Scrn (NEGATIVE) Urine MDMA Screen (NEGATIVE) U Benzodiazepines Scrn (NEGATIVE) U Cocaine Metab Screen (NEGATIVE) U Marijuana (THC) Screen (NEGATIVE) Ethyl Alcohol mg/dL 03/20/19 03/20/19 03/20/19 Range/Units 22:49 22:49 23:02 WBC (4.5-11.0) K/uL RBC (3.30-5.50) M/uL Hgb (12.0-15.0) g/dL Hct (36.0-48.0) % MCV (80-98) fL MCH (27-31) pg MCHC (32-36) % Plt Count (150-400) K/uL Neut % (Auto) (36-66) % Lymph % (Auto) (24-44) % Sutter % (Auto) (2-6) % Eos % (Auto) (2-4) % Baso % (Auto) (0-1) % PT (9.5-12.0) sec INR (0.80-1.20) Sodium (140-148) mmol/L Potassium (3.6-5.2) mmol/L Chloride (100-108) mmol/L Carbon Dioxide (21-32) mmol/L Anion Gap (5.0-14.0) mmol/L BUN (7-18) mg/dL Creatinine (0.6-1.0) mg/dL Est Cr Clr Drug Dosing mL/min Estimated GFR (MDRD) (>60) Glucose (74-106) mg/dL Lactic Acid 19.7 H (0.4-2.0) mmol/L Calcium (8.5-10.1) mg/dL Total Bilirubin (0.2-1.0) mg/dL AST (15-37) U/L ALT (12-78) U/L Alkaline Phosphatase (46-116) U/L Troponin I (0.000-0.056) ng/mL Total Protein (6.4-8.2) g/dL Albumin (3.4-5.0) g/dL Globulin (2.3-3.5) g/dL Albumin/Globulin Ratio (1.2-2.2) Lipase (73-393) U/L TSH, Ultra Sensitive (0.358-3.740) uIU/mL Urine Color Yellow Urine Appearance Cloudy Urine pH 5.0 (4.5-8.0) Ur Specific [place] 1.025 (1.008-1.030) Urine Protein Negative (NEGATIVE) mg/dL Urine Glucose (UA) Normal (NEGATIVE) mg/dL Urine Ketones Negative (NEGATIVE) mg/dL Urine Occult Blood Large (NEGATIVE) Urine Nitrite Negative (NEGATIVE) Urine Bilirubin Negative (NEGATIVE) Urine Urobilinogen 4 (NORMAL) mg/dL Ur Leukocyte Esterase Negative (NEGATIVE) Urine RBC 0-5 (0-5) Urine WBC 0-5 (0-5) Ur Epithelial Cells Moderate Amorphous Sediment Not seen Urine Bacteria Many Urine Mucus Not seen Urine Opiates Screen Presumptive positive H (NEGATIVE) Ur Oxycodone Screen Negative (NEGATIVE) Urine Methadone Screen Negative (NEGATIVE) Ur Propoxyphene Screen Negative (NEGATIVE) Ur Barbiturates Screen Negative (NEGATIVE) Ur Tricyclics Screen Negative (NEGATIVE) Ur Phencyclidine Scrn Negative (NEGATIVE) Ur Amphetamine Screen Negative (NEGATIVE) U Methamphetamines Scrn Negative (NEGATIVE) Urine MDMA Screen Negative (NEGATIVE) U Benzodiazepines Scrn Negative (NEGATIVE) U Cocaine Metab Screen Negative (NEGATIVE) U Marijuana (THC) Screen Negative (NEGATIVE) Ethyl Alcohol mg/dL 03/20/19 Range/Units 23:40 WBC (4.5-11.0) K/uL RBC (3.30-5.50) M/uL Hgb (12.0-15.0) g/dL Hct (36.0-48.0) % MCV (80-98) fL MCH (27-31) pg MCHC (32-36) % Plt Count (150-400) K/uL Neut % (Auto) (36-66) % Lymph % (Auto) (24-44) % Sutter % (Auto) (2-6) % Eos % (Auto) (2-4) % Baso % (Auto) (0-1) % PT (9.5-12.0) sec INR (0.80-1.20) Sodium (140-148) mmol/L Potassium (3.6-5.2) mmol/L Chloride (100-108) mmol/L Carbon Dioxide (21-32) mmol/L Anion Gap (5.0-14.0) mmol/L BUN (7-18) mg/dL Creatinine (0.6-1.0) mg/dL Est Cr Clr Drug Dosing mL/min Estimated GFR (MDRD) (>60) Glucose (74-106) mg/dL Lactic Acid (0.4-2.0) mmol/L Calcium (8.5-10.1) mg/dL Total Bilirubin (0.2-1.0) mg/dL AST (15-37) U/L ALT (12-78) U/L Alkaline Phosphatase (46-116) U/L Troponin I (0.000-0.056) ng/mL Total Protein (6.4-8.2) g/dL Albumin (3.4-5.0) g/dL Globulin (2.3-3.5) g/dL Albumin/Globulin Ratio (1.2-2.2) Lipase 53 L (73-393) U/L TSH, Ultra Sensitive (0.358-3.740) uIU/mL Urine Color Urine Appearance Urine pH (4.5-8.0) Ur Specific [place] (1.008-1.030) Urine Protein (NEGATIVE) mg/dL Urine Glucose (UA) (NEGATIVE) mg/dL Urine Ketones (NEGATIVE) mg/dL Urine Occult Blood (NEGATIVE) Urine Nitrite (NEGATIVE) Urine Bilirubin (NEGATIVE) Urine Urobilinogen (NORMAL) mg/dL Ur Leukocyte Esterase (NEGATIVE) Urine RBC (0-5) Urine WBC (0-5) Ur Epithelial Cells Amorphous Sediment Urine Bacteria Urine Mucus Urine Opiates Screen (NEGATIVE) Ur Oxycodone Screen (NEGATIVE) Urine Methadone Screen (NEGATIVE) Ur Propoxyphene Screen (NEGATIVE) Ur Barbiturates Screen (NEGATIVE) Ur Tricyclics Screen (NEGATIVE) Ur Phencyclidine Scrn (NEGATIVE) Ur Amphetamine Screen (NEGATIVE) U Methamphetamines Scrn (NEGATIVE) Urine MDMA Screen (NEGATIVE) U Benzodiazepines Scrn (NEGATIVE) U Cocaine Metab Screen (NEGATIVE) U Marijuana (THC) Screen (NEGATIVE) Ethyl Alcohol mg/dL Result Diagrams: 03/20/19 22:24 03/20/19 22:24 Imaging Impressions Last 24 hrs: CT scan of the head - images personally reviewed - no evidence for acute intracranial pathology *Q Meaningful Use (ADM) - VTE *Q VTE Pharmacological Contraindications *Q: Thrombocytopenia - VTE Risk Assess *Q Each Risk Factor Represents 1 Point: Age 41 - 59 years, Swollen Legs, Current, Obesity ( BMI > 25 kg/m2) Total Score 1 Point Risk Factors: 3 Each Risk Factor Represents 2 Points: None Total Score 2 Point Risk Factors: 0 Each Risk Factor Represents 3 Points: None Total Score 3 Point Risk Factors: 0 Each Risk Factor Represents 5 Points: None Total Score 5 Point Risk Factors: 0 Venous Thromboembolism Risk Factor Score *Q: 3 - Problem List (1) Alcohol withdrawal delirium SNOMED Code(s): 8759086 ICD Code: F10.231 - ALCOHOL DEPENDENCE WITH WITHDRAWAL DELIRIUM Status: Acute Current Visit: Yes (2) Cirrhosis of liver with ascites SNOMED Code(s): 04812327 ICD Code: K74.60 - UNSPECIFIED CIRRHOSIS OF LIVER; R18.8 - OTHER ASCITES Status: Acute Current Visit: Yes Qualifiers: Hepatic cirrhosis type: alcoholic cirrhosis Qualified Code(s): K70.31 - Alcoholic cirrhosis of liver with ascites (3) Coagulopathy SNOMED Code(s): 08320104 ICD Code: D68.9 - COAGULATION DEFECT, UNSPECIFIED Status: Acute Current Visit: Yes (4) Acute kidney injury SNOMED Code(s): 38185519, 16917509 ICD Code: N17.9 - ACUTE KIDNEY FAILURE, UNSPECIFIED Status: Acute Current Visit: Yes (5) Acute hepatic encephalopathy SNOMED Code(s): 14707501, 73632243 ICD Code: K72.00 - ACUTE AND SUBACUTE HEPATIC FAILURE WITHOUT COMA Status: Acute Current Visit: Yes (6) Type 2 diabetes mellitus SNOMED Code(s): 63690986 ICD Code: E11.9 - TYPE 2 DIABETES MELLITUS WITHOUT COMPLICATIONS Status: Chronic Current Visit: No Qualifiers: Diabetes mellitus 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 DIRECTED Care 03/20/19 22:54 Active Head wo Cont [CT] Stat Exams 03/21/19 00:26 Ordered AMMONIA VENOUS [CHEM] Stat Lab 03/21/19 00:37 Received Lactated Ringers [Ringers, Lactated] 1,000 ml Med 03/20/19 22:54 Active IV BOLUS Sodium Chloride 0.9% [Saline Flush] Med 03/20/19 22:54 Active 10 ml FLUSH ASDIRECTED PRN Peripheral IV Insertion Adult [OM.PC] Urgent Oth 03/20/19 22:54 Ordered Resuscitation Status Routine Resus Stat 03/21/19 00:32 Ordered Medication Orders Lactated Ringer's (Ringers, Lactated) 1,000 mls @ 250 mls/hr IV BOLUS ONE Stop: 03/21/19 02:53 Last Admin: 03/20/19 23:05 Dose: 250 mls/hr Sodium Chloride (Saline Flush) 10 ml FLUSH ASDIRECTED PRN PRN Reason: Keep Vein Open Last Admin: 03/20/19 23:09 Dose: 10 ml Assessment/Plan Comment:: ASSESSMENT AND PLAN - Alcohol withdrawal delirium - patient is very lethargic at this time. Exact duration and quantity of alcohol consumption is unknown at this time. She does have a long-standing history of cirrhosis and examination is consistent with this. She has mild elevation of bilirubin and significant elevation of INR at this time. Her discriminate function is quite high at nearly 400 suggesting she may benefit from steroids. Ammonia level is elevated. Head CT was unremarkable. She has received lorazepam in the emergency room. Additional complications from alcohol use thrombocytopenia, ascites and hepatic encephalopathy. She is very ill from her chronic liver disease at this time and will be admitted to the intensive care unit. -CIWAA protocol with lorazepam -Melatonin at bedtime -Gabapentin 400 mg 3 times daily 5 days -Supplement thiamine, folate and magnesium -Start methylprednisolone -PPI -Patient will need long discussion about importance of absolute abstinence when she is more alert and interactive Hepatic encephalopathy - ammonia elevated at 90. -Lactulose enema 1 tonight -Ammonia level in the morning Coagulopathy - Acquired in the setting of chronic liver disease. INR is too high to calculate at this time. -Vitamin K 5 mg IV 1 now and repeat labs in the morning Acute kidney injury - she does appear to have some intravascular volume depletion and hopefully this will improve her kidney function. There may be a component of hepatorenal syndrome and she will need close monitoring. -IV fluids overnight and repeat labs in the morning Lactic acidosis - significant elevation of her lactic acid with a level of nearly 20 at this time. Probably a component of hypoperfusion as well as a component of elevation from chronic alcoholism and probably impaired clearance with her cirrhosis. -Volume resuscitation as above -Repeat level in the morning Maintenance issues - - DVT prophylaxis - mechanical with thrombocytopenia and coagulopathy - GI prophylaxis - IV PPI - Nutrition - nothing by mouth - Paredes catheter - not indicated CODE STATUS - presumed to be full code at this time Admission justification - This patient will be admitted for inpatient services and is medically appropriate meeting medical necessity for inpatient admission as outlined in my documentation. I reasonably expect the patient will require inpatient services that span a period time over 2 midnights. I reasonably expect this patient to be discharged or transferred within 96 hours [facility]. Disposition - pending at this time and plan will be developed as the intensive care unit stay progresses Primary care physician - Dr Kathy Tiwari M.D.
--- NOTE | 2019-03-21 01:01 | CRLCT ---
INDICATION: confusion CT HEAD WITHOUT CONTRAST TECHNIQUE: Multiple axial CT images were performed through the head without intravenous contrast administration. COMPARISON: No previous studies are currently available for comparison. FINDINGS: No acute intracranial hemorrhage is identified. No extra-axial collections are evident and there is no mass effect or midline shift. There is mild diffuse age-related brain atrophy. Ventricular size and configuration are within normal limits for the patient`s age. Jordan-white differentiation is within normal limits. There is patchy hypodensity in the periventricular white matter, a nonspecific finding which most likely reflects chronic small vessel ischemic change. Intracranial atherosclerotic vascular calcifications are noted. Osseous structures are within normal limits and no fractures are seen. Included portions of the paranasal sinuses and mastoid air cells are normally aerated. IMPRESSION: 1. No acute intracranial abnormality identified. 2. Mild age-related brain atrophy, white matter hypodensity consistent with chronic small vessel ischemic change, and intracranial atherosclerotic vascular calcifications. CHANTALE BERNAL MD [facility] Dictated by: Jairo Bernal MD @ 03/21/2019 01:00:41 (Electronically Signed)
[2019-03-21] MEDS ORDERED: Lactulose Soln 10 GM/15 ML ML 473 ML Bottle RECTAL ONE (01:02)
[2019-03-21] MEDS ORDERED: Morphine 2 MG/ML Syringe IVPUSH PRN (01:39)
[2019-03-21] MEDS ORDERED: Ondansetron 4 MG/2 ML SDV IV PRN (01:39)
[2019-03-21] MEDS ORDERED: LORazepam 2 MG/ML SDV IVPUSH PRN (01:39)
[2019-03-21] MEDS ORDERED: Albuterol 0.083% 2.5 MG/3 ML Neb Soln NEB PRN (01:39)
[2019-03-21] MEDS ORDERED: LORazepam 2 MG/ML SDV IV SCH (01:39)
[2019-03-21] MEDS ORDERED: Ondansetron 4 MG Tab.DIS PO PRN (01:39)
[2019-03-21] MEDS ORDERED: Pantoprazole 40 MG Vial IV ONE (01:39)
[2019-03-21] MEDS ORDERED: MVI, Adult with Vitamin K 10 ML, Thiamine 100 MG, Folic Acid 1 MG, Magnesium Sulfate 2 ... IV ONE ×5 (01:39)
[2019-03-21] MEDS ORDERED: Magnesium Hydroxide 400 MG/5 ML Susp 30 ML Cup PO PRN (01:39)
[2019-03-21] MEDS ORDERED: LORazepam 1 MG Tab PO SCH (01:39)
[2019-03-21] MEDS ORDERED: Phytonadione 5 MG in Sodium Chloride 0.9% 50 ML IV ONE ×2 (01:39→10:15)
[2019-03-21] MEDS ORDERED: Acetaminophen 325 MG Tab PO PRN (01:39)
[2019-03-21] MEDS ORDERED: Lactulose Soln 10 GM/15 ML 15 ML UD Cup ONE ×2 (02:06→02:10)
[2019-03-21] MEDS ORDERED: Sodium Chloride 0.9% 500 ML IV ONE (03:12)
[2019-03-21] MEDS ORDERED: Insulin Lispro 100 Unit/ML 3 ML KwikPen SUBCUT SCH (07:00)
[2019-03-21] MEDS ORDERED: Lactulose Soln 10 GM/15 ML 15 ML UD Cup PO ONE (07:00)
[2019-03-21] MEDS: Sodium Chloride 0.9% 1,000 ML IV SCH ×2 (07:35→10:03)
[2019-03-21] MEDS ORDERED: Sodium Chloride 0.9% 1,000 ML IV ONE (08:45)
[2019-03-21] MEDS ORDERED: Gabapentin 400 MG Cap PO SCH (09:00)
[2019-03-21] MEDS ORDERED: Folic Acid 1 MG Tab PO SCH (09:00)
[2019-03-21] MEDS ORDERED: methylPREDNISolone Sodium Succinate 40 MG/1 ML SDV IVPUSH SCH (09:00)
[2019-03-21] MEDS ORDERED: Thiamine 100 MG Tab PO SCH (09:00)
[2019-03-21] MEDS ORDERED: Sodium Bicarbonate 8.4% 50 MEQ/50 ML Syringe IVPUSH ONE (09:30)
[2019-03-21] MEDS ORDERED: 50% Dextrose in Water 50 ML Syringe IVPUSH ONE (09:30)
[2019-03-21] MEDS ORDERED: Insulin Lispro 100 Unit/ML 3 ML KwikPen SUBCUT ONE (09:30)
[2019-03-21] MEDS: Sodium Bicarbonate 8.4% 50 MEQ/50 ML SDV IV ONE ×2 (09:36→09:37)
[2019-03-21] MEDS ORDERED: Lactulose Soln 10 GM/15 ML 15 ML UD Cup NGTUBE ONE (09:45)
--- NOTE | 2019-03-21 09:47 | PCM.DCSUM1 ---
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 She was admitted for management of alcoholic hepatitis with HE, coagulopathy, NEELIMA and severe lactic acidosis. Diagnosis: Stroke: No - Discharge Data Discharge Date: 03/21/19 Discharge Disposition: DC/Tfer to Acute Hospital 02 Condition: Serious - Discharge Diagnosis/Problem(s) (1) Alcohol withdrawal delirium SNOMED Code(s): 6316498 ICD Code: F10.231 - ALCOHOL DEPENDENCE WITH WITHDRAWAL DELIRIUM Status: Acute Current Visit: Yes (2) Cirrhosis of liver with ascites SNOMED Code(s): 73220035 ICD Code: K74.60 - UNSPECIFIED CIRRHOSIS OF LIVER; R18.8 - OTHER ASCITES Status: Acute Current Visit: Yes Qualifiers: Hepatic cirrhosis type: alcoholic cirrhosis Qualified Code(s): K70.31 - Alcoholic cirrhosis of liver with ascites (3) Coagulopathy SNOMED Code(s): 89732350 ICD Code: D68.9 - COAGULATION DEFECT, UNSPECIFIED Status: Acute Current Visit: Yes (4) Acute kidney injury SNOMED Code(s): 92178019, 57983456 ICD Code: N17.9 - ACUTE KIDNEY FAILURE, UNSPECIFIED Status: Acute Current Visit: Yes (5) Acute hepatic encephalopathy SNOMED Code(s): 28659989, 48287983 ICD Code: K72.00 - ACUTE AND SUBACUTE HEPATIC FAILURE WITHOUT COMA Status: Acute Current Visit: Yes (6) Type 2 diabetes mellitus SNOMED Code(s): 84647749 ICD Code: E11.9 - TYPE 2 DIABETES MELLITUS WITHOUT COMPLICATIONS Status: Deleted Current Visit: No Qualifiers: Diabetes mellitus fdc insulin use: with terminal superintendent use Diabetes mellitus complication status: with hyperglycemia Qualified Code(s): E11.65 - Type 2 diabetes mellitus with hyperglycemia; Z79.4 - terminal superintendent (current) use of insulin (7) Hyperkalemia SNOMED Code(s): 37526729 ICD Code: E87.5 - HYPERKALEMIA Status: Acute Current Visit: Yes - Patient Summary/Data Hospital Course: Kate presented to the emergency room with confusion. She reported a 4 day binge of alcohol consumption prior to emergency room presentation. History was limited unfortunately by her decreased level of consciousness and lethargy. Laboratory workup in the emergency room revealed thrombocytopenia, hyponatremia , anion gap metabolic acidosis with a lactic acid 19 as well as acute kidney injury with a creatinine of 2.1. Her PT was too high to calculate and INR was at the very least greater than 8. Bilirubin mildly elevated at 2.8 and AST was elevated at 163. Alcohol level was elevated at 211 10 drug screen was positive for opiates which were not provided in the emergency room. Alcoholic cirrhosis with greatly impaired synthetic function with superimposed alcoholic hepatitis was suspected. She appeared to have intravascular volume depletion. She was admitted to the intensive care unit for further management. We did provide IV fluids with the suspect intravascular volume depletion and hypotension with systolic blood pressures in the 70s and 80s. She received 5 mg of IV vitamin K. We did not find any evidence to suggest infection so we did not start antibiotics. Head CT was unremarkable. Ammonia level obtained towards the end of the emergency room stay was elevated at 90 and we did attempt a lactulose enema which was retained for only a short time. She received subcutaneous insulin to help with hyperglycemia noted at the time of presentation as well. Patient had persistent hypotension throughout the night with systolic blood pressures in the upper 80s and lower 90s. She did receive a banana bag with magnesium, thiamine and folate. She received 1 dose of oral lorazepam to help with presumed alcohol withdrawal. Morning after admission the patient remains very lethargic. Blood pressures have remained in the upper 80s. She has not had any fevers. Laboratory studies this morning revealed fairly stable platelets at 63. Bilirubin has risen slightly to 3 and AST has jumped up to more than 600. Her sodium is stable at 125 potassium has risen to 5.6. Bicarbonate level has decreased to 7 this morning and lactic acid has risen up to 24. Creatinine has risen from 2.1 to 2.3. Her PT remains greater than 100 despite vitamin K given last night. Patient appears to be developing worsening hepatic failure and potentially hepatorenal syndrome. I cannot explain her severe lactic acidosis at this time. She now has hyperkalemia in the setting of acute kidney injury. I believe she would benefit from a higher level of care with gastroenterology and potentially nephrology consultations. I did speak with the telephonic rn and hospitalist at [facility] and they graciously accepted her care. Prior to transfer the patient did receive 2 amps of bicarbonate for her severe acidosis. She also received an amp of D50 followed by 10 units of subcutaneous insulin for her hyperglycemia. An NG tube was placed and 20 g of lactulose was administered. She received a second dose of 5 mg of IV vitamin K. A Paredes catheter was placed. The transfer was discussed with her brother who is her power of securities attorney and he was agreeable to the transfer and higher level of care. - Patient Instructions Diet: NPO Activity: Bedrest Other/Special Instructions: Transfer to [facility]. Dx: alcoholic hepatitis , liver failure, cirrhosis, NEELIMA, hyperkalemia, hepatic encephalopathy - Discharge Plan *PRESCRIPTION DRUG MONITORING PROGRAM REVIEWED*: Not Applicable *COPY OF PRESCRIPTION DRUG MONITORING REPORT IN PATIENT GALE: Not Applicable Home Medications: Home Meds ALPRAZolam [Xanax] 0.5 mg PO DAILY PRN 03/09/16 [History] Cholecalciferol (Vitamin D3) [Vitamin D3] 3,000 unit PO DAILY 03/09/16 [History] Insulin Aspart [NovoLOG] 0 - 12 unit SUBCUT TIDAC 03/09/16 [History] Magnesium Oxide 800 mg PO BID 03/09/16 [History] Oxygen Therapy Mode: Room Air Referrals: Nasim Chavez MD [Physician] - - Discharge Summary/Plan Comment DC Time >30 min.: Yes (80 - transfer to [facility] ) - Patient Data Vitals - Most Recent: Last Vital Signs Temp 35.6 C 03/21/19 07:45 Pulse 44 L 03/21/19 07:45 Resp 26 H 03/21/19 07:45 BP 83/35 L 03/21/19 07:45 Pulse Ox 95 03/21/19 07:45 Weight - Most Recent: 90.764 kg I&O - Last 24 hours: Intake & Output 03/20/19 03/21/19 03/21/19 22:59 06:59 14:59 Intake Total 1690 Balance 1690 Lab Results - Last 24 hrs: Laboratory Results - last 24 hr 03/20/19 03/20/19 03/20/19 Range/Units 22:24 22:24 22:24 WBC 5.3 (4.5-11.0) K/uL RBC 3.65 (3.30-5.50) M/uL Hgb 12.2 (12.0-15.0) g/dL Hct 37.3 (36.0-48.0) % MCV 102 H (80-98) fL MCH 33 H (27-31) pg MCHC 33 (32-36) % Plt Count 70 L (150-400) K/uL Neut % (Auto) 83 H (36-66) % Lymph % (Auto) 9 L (24-44) % [place] % (Auto) 8 H (2-6) % Eos % (Auto) 0 L (2-4) % Baso % (Auto) 0 (0-1) % PT (9.5-12.0) sec INR (0.80-1.20) Sodium 125 L (140-148) mmol/L Potassium 4.9 (3.6-5.2) mmol/L Chloride 81 L (100-108) mmol/L Carbon Dioxide 11 L (21-32) mmol/L Anion Gap 37.9 H (5.0-14.0) mmol/L BUN 14 D (7-18) mg/dL Creatinine 2.1 H (0.6-1.0) mg/dL Est Cr Clr Drug Dosing 28.74 mL/min Estimated GFR (MDRD) 24 L (>60) Glucose 377 H (74-106) mg/dL Lactic Acid (0.4-2.0) mmol/L Calcium 7.9 L (8.5-10.1) mg/dL Magnesium (1.8-2.4) mg/dL Total Bilirubin 2.8 H D (0.2-1.0) mg/dL AST 163 H D (15-37) U/L ALT 79 H (12-78) U/L Alkaline Phosphatase 194 H (46-116) U/L Ammonia (11-32) mmol/L Troponin I (0.000-0.056) ng/mL Total Protein 7.5 (6.4-8.2) g/dL Albumin 2.7 L (3.4-5.0) g/dL Globulin 4.8 H (2.3-3.5) g/dL Albumin/Globulin Ratio 0.6 L (1.2-2.2) Lipase (73-393) U/L TSH, Ultra Sensitive (0.358-3.740) uIU/mL Urine Color Urine Appearance Urine pH (4.5-8.0) Ur Specific [place] (1.008-1.030) Urine Protein (NEGATIVE) mg/dL Urine Glucose (UA) (NEGATIVE) mg/dL Urine Ketones (NEGATIVE) mg/dL Urine Occult Blood (NEGATIVE) Urine Nitrite (NEGATIVE) Urine Bilirubin (NEGATIVE) Urine Urobilinogen (NORMAL) mg/dL Ur Leukocyte Esterase (NEGATIVE) Urine RBC (0-5) Urine WBC (0-5) Ur Epithelial Cells Amorphous Sediment Urine Bacteria Urine Mucus Urine Opiates Screen (NEGATIVE) Ur Oxycodone Screen (NEGATIVE) Urine Methadone Screen (NEGATIVE) Ur Propoxyphene Screen (NEGATIVE) Ur Barbiturates Screen (NEGATIVE) Ur Tricyclics Screen (NEGATIVE) Ur Phencyclidine Scrn (NEGATIVE) Ur Amphetamine Screen (NEGATIVE) U Methamphetamines Scrn (NEGATIVE) Urine MDMA Screen (NEGATIVE) U Benzodiazepines Scrn (NEGATIVE) U Cocaine Metab Screen (NEGATIVE) U Marijuana (THC) Screen (NEGATIVE) Ethyl Alcohol 211 mg/dL 03/20/19 03/20/19 03/20/19 Range/Units 22:24 22:24 22:24 WBC (4.5-11.0) K/uL RBC (3.30-5.50) M/uL Hgb (12.0-15.0) g/dL Hct (36.0-48.0) % MCV (80-98) fL MCH (27-31) pg MCHC (32-36) % Plt Count (150-400) K/uL Neut % (Auto) (36-66) % Lymph % (Auto) (24-44) % [place] % (Auto) (2-6) % Eos % (Auto) (2-4) % Baso % (Auto) (0-1) % PT > 100.0 H (9.5-12.0) sec INR (0.80-1.20) Sodium (140-148) mmol/L Potassium (3.6-5.2) mmol/L Chloride (100-108) mmol/L Carbon Dioxide (21-32) mmol/L Anion Gap (5.0-14.0) mmol/L BUN (7-18) mg/dL Creatinine (0.6-1.0) mg/dL Est Cr Clr Drug Dosing mL/min Estimated GFR (MDRD) (>60) Glucose (74-106) mg/dL Lactic Acid (0.4-2.0) mmol/L Calcium (8.5-10.1) mg/dL Magnesium (1.8-2.4) mg/dL Total Bilirubin (0.2-1.0) mg/dL AST (15-37) U/L ALT (12-78) U/L Alkaline Phosphatase (46-116) U/L Ammonia (11-32) mmol/L Troponin I 0.048 (0.000-0.056) ng/mL Total Protein (6.4-8.2) g/dL Albumin (3.4-5.0) g/dL Globulin (2.3-3.5) g/dL Albumin/Globulin Ratio (1.2-2.2) Lipase (73-393) U/L TSH, Ultra Sensitive 2.657 (0.358-3.740) uIU/mL Urine Color Urine Appearance Urine pH (4.5-8.0) Ur Specific [place] (1.008-1.030) Urine Protein (NEGATIVE) mg/dL Urine Glucose (UA) (NEGATIVE) mg/dL Urine Ketones (NEGATIVE) mg/dL Urine Occult Blood (NEGATIVE) Urine Nitrite (NEGATIVE) Urine Bilirubin (NEGATIVE) Urine Urobilinogen (NORMAL) mg/dL Ur Leukocyte Esterase (NEGATIVE) Urine RBC (0-5) Urine WBC (0-5) Ur Epithelial Cells Amorphous Sediment Urine Bacteria Urine Mucus Urine Opiates Screen (NEGATIVE) Ur Oxycodone Screen (NEGATIVE) Urine Methadone Screen (NEGATIVE) Ur Propoxyphene Screen (NEGATIVE) Ur Barbiturates Screen (NEGATIVE) Ur Tricyclics Screen (NEGATIVE) Ur Phencyclidine Scrn (NEGATIVE) Ur Amphetamine Screen (NEGATIVE) U Methamphetamines Scrn (NEGATIVE) Urine MDMA Screen (NEGATIVE) U Benzodiazepines Scrn (NEGATIVE) U Cocaine Metab Screen (NEGATIVE) U Marijuana (THC) Screen (NEGATIVE) Ethyl Alcohol mg/dL 03/20/19 03/20/19 03/20/19 Range/Units 22:49 22:49 23:02 WBC (4.5-11.0) K/uL RBC (3.30-5.50) M/uL Hgb (12.0-15.0) g/dL Hct (36.0-48.0) % MCV (80-98) fL MCH (27-31) pg MCHC (32-36) % Plt Count (150-400) K/uL Neut % (Auto) (36-66) % Lymph % (Auto) (24-44) % [place] % (Auto) (2-6) % Eos % (Auto) (2-4) % Baso % (Auto) (0-1) % PT (9.5-12.0) sec INR (0.80-1.20) Sodium (140-148) mmol/L Potassium (3.6-5.2) mmol/L Chloride (100-108) mmol/L Carbon Dioxide (21-32) mmol/L Anion Gap (5.0-14.0) mmol/L BUN (7-18) mg/dL Creatinine (0.6-1.0) mg/dL Est Cr Clr Drug Dosing mL/min Estimated GFR (MDRD) (>60) Glucose (74-106) mg/dL Lactic Acid 19.7 H (0.4-2.0) mmol/L Calcium (8.5-10.1) mg/dL Magnesium (1.8-2.4) mg/dL Total Bilirubin (0.2-1.0) mg/dL AST (15-37) U/L ALT (12-78) U/L Alkaline Phosphatase (46-116) U/L Ammonia (11-32) mmol/L Troponin I (0.000-0.056) ng/mL Total Protein (6.4-8.2) g/dL Albumin (3.4-5.0) g/dL Globulin (2.3-3.5) g/dL Albumin/Globulin Ratio (1.2-2.2) Lipase (73-393) U/L TSH, Ultra Sensitive (0.358-3.740) uIU/mL Urine Color Yellow Urine Appearance Cloudy Urine pH 5.0 (4.5-8.0) Ur Specific [place] 1.025 (1.008-1.030) Urine Protein Negative (NEGATIVE) mg/dL Urine Glucose (UA) Normal (NEGATIVE) mg/dL Urine Ketones Negative (NEGATIVE) mg/dL Urine Occult Blood Large (NEGATIVE) Urine Nitrite Negative (NEGATIVE) Urine Bilirubin Negative (NEGATIVE) Urine Urobilinogen 4 (NORMAL) mg/dL Ur Leukocyte Esterase Negative (NEGATIVE) Urine RBC 0-5 (0-5) Urine WBC 0-5 (0-5) Ur Epithelial Cells Moderate Amorphous Sediment Not seen Urine Bacteria Many Urine Mucus Not seen Urine Opiates Screen Presumptive positive H (NEGATIVE) Ur Oxycodone Screen Negative (NEGATIVE) Urine Methadone Screen Negative (NEGATIVE) Ur Propoxyphene Screen Negative (NEGATIVE) Ur Barbiturates Screen Negative (NEGATIVE) Ur Tricyclics Screen Negative (NEGATIVE) Ur Phencyclidine Scrn Negative (NEGATIVE) Ur Amphetamine Screen Negative (NEGATIVE) U Methamphetamines Scrn Negative (NEGATIVE) Urine MDMA Screen Negative (NEGATIVE) U Benzodiazepines Scrn Negative (NEGATIVE) U Cocaine Metab Screen Negative (NEGATIVE) U Marijuana (THC) Screen Negative (NEGATIVE) Ethyl Alcohol mg/dL 03/20/19 03/21/19 03/21/19 Range/Units 23:40 00:37 05:00 WBC 7.7 (4.5-11.0) K/uL RBC 3.32 (3.30-5.50) M/uL Hgb 11.2 L (12.0-15.0) g/dL Hct 35.0 L (36.0-48.0) % MCV 105 H (80-98) fL MCH 34 H (27-31) pg MCHC 32 (32-36) % Plt Count 63 L (150-400) K/uL Neut % (Auto) (36-66) % Lymph % (Auto) (24-44) % [place] % (Auto) (2-6) % Eos % (Auto) (2-4) % Baso % (Auto) (0-1) % PT (9.5-12.0) sec INR (0.80-1.20) Sodium (140-148) mmol/L Potassium (3.6-5.2) mmol/L Chloride (100-108) mmol/L Carbon Dioxide (21-32) mmol/L Anion Gap (5.0-14.0) mmol/L BUN (7-18) mg/dL Creatinine (0.6-1.0) mg/dL Est Cr Clr Drug Dosing mL/min Estimated GFR (MDRD) (>60) Glucose (74-106) mg/dL Lactic Acid (0.4-2.0) mmol/L Calcium (8.5-10.1) mg/dL Magnesium (1.8-2.4) mg/dL Total Bilirubin (0.2-1.0) mg/dL AST (15-37) U/L ALT (12-78) U/L Alkaline Phosphatase (46-116) U/L Ammonia 90 H (11-32) mmol/L Troponin I (0.000-0.056) ng/mL Total Protein (6.4-8.2) g/dL Albumin (3.4-5.0) g/dL Globulin (2.3-3.5) g/dL Albumin/Globulin Ratio (1.2-2.2) Lipase 53 L (73-393) U/L TSH, Ultra Sensitive (0.358-3.740) uIU/mL Urine Color Urine Appearance Urine pH (4.5-8.0) Ur Specific [place] (1.008-1.030) Urine Protein (NEGATIVE) mg/dL Urine Glucose (UA) (NEGATIVE) mg/dL Urine Ketones (NEGATIVE) mg/dL Urine Occult Blood (NEGATIVE) Urine Nitrite (NEGATIVE) Urine Bilirubin (NEGATIVE) Urine Urobilinogen (NORMAL) mg/dL Ur Leukocyte Esterase (NEGATIVE) Urine RBC (0-5) Urine WBC (0-5) Ur Epithelial Cells Amorphous Sediment Urine Bacteria Urine Mucus Urine Opiates Screen (NEGATIVE) Ur Oxycodone Screen (NEGATIVE) Urine Methadone Screen (NEGATIVE) Ur Propoxyphene Screen (NEGATIVE) Ur Barbiturates Screen (NEGATIVE) Ur Tricyclics Screen (NEGATIVE) Ur Phencyclidine Scrn (NEGATIVE) Ur Amphetamine Screen (NEGATIVE) U Methamphetamines Scrn (NEGATIVE) Urine MDMA Screen (NEGATIVE) U Benzodiazepines Scrn (NEGATIVE) U Cocaine Metab Screen (NEGATIVE) U Marijuana (THC) Screen (NEGATIVE) Ethyl Alcohol mg/dL 03/21/19 03/21/19 03/21/19 Range/Units 05:00 05:00 05:00 WBC (4.5-11.0) K/uL RBC (3.30-5.50) M/uL Hgb (12.0-15.0) g/dL Hct (36.0-48.0) % MCV (80-98) fL MCH (27-31) pg MCHC (32-36) % Plt Count (150-400) K/uL Neut % (Auto) (36-66) % Lymph % (Auto) (24-44) % [place] % (Auto) (2-6) % Eos % (Auto) (2-4) % Baso % (Auto) (0-1) % PT > 100.0 H (9.5-12.0) sec INR (0.80-1.20) Sodium 125 L (140-148) mmol/L Potassium 5.6 H (3.6-5.2) mmol/L Chloride 84 L (100-108) mmol/L Carbon Dioxide 7 L (21-32) mmol/L Anion Gap 39.6 H (5.0-14.0) mmol/L BUN 14 (7-18) mg/dL Creatinine 2.3 H (0.6-1.0) mg/dL Est Cr Clr Drug Dosing 26.24 mL/min Estimated GFR (MDRD) 22 L (>60) Glucose 282 H (74-106) mg/dL Lactic Acid (0.4-2.0) mmol/L Calcium 7.8 L (8.5-10.1) mg/dL Magnesium 2.2 (1.8-2.4) mg/dL Total Bilirubin 3.0 H (0.2-1.0) mg/dL AST 613 H D (15-37) U/L ALT 142 H (12-78) U/L Alkaline Phosphatase 181 H (46-116) U/L Ammonia 88 H (11-32) mmol/L Troponin I (0.000-0.056) ng/mL Total Protein 6.8 (6.4-8.2) g/dL Albumin 2.4 L (3.4-5.0) g/dL Globulin 4.4 H (2.3-3.5) g/dL Albumin/Globulin Ratio 0.6 L (1.2-2.2) Lipase (73-393) U/L TSH, Ultra Sensitive (0.358-3.740) uIU/mL Urine Color Urine Appearance Urine pH (4.5-8.0) Ur Specific [place] (1.008-1.030) Urine Protein (NEGATIVE) mg/dL Urine Glucose (UA) (NEGATIVE) mg/dL Urine Ketones (NEGATIVE) mg/dL Urine Occult Blood (NEGATIVE) Urine Nitrite (NEGATIVE) Urine Bilirubin (NEGATIVE) Urine Urobilinogen (NORMAL) mg/dL Ur Leukocyte Esterase (NEGATIVE) Urine RBC (0-5) Urine WBC (0-5) Ur Epithelial Cells Amorphous Sediment Urine Bacteria Urine Mucus Urine Opiates Screen (NEGATIVE) Ur Oxycodone Screen (NEGATIVE) Urine Methadone Screen (NEGATIVE) Ur Propoxyphene Screen (NEGATIVE) Ur Barbiturates Screen (NEGATIVE) Ur Tricyclics Screen (NEGATIVE) Ur Phencyclidine Scrn (NEGATIVE) Ur Amphetamine Screen (NEGATIVE) U Methamphetamines Scrn (NEGATIVE) Urine MDMA Screen (NEGATIVE) U Benzodiazepines Scrn (NEGATIVE) U Cocaine Metab Screen (NEGATIVE) U Marijuana (THC) Screen (NEGATIVE) Ethyl Alcohol mg/dL 03/21/19 Range/Units 05:00 WBC (4.5-11.0) K/uL RBC (3.30-5.50) M/uL Hgb (12.0-15.0) g/dL Hct (36.0-48.0) % MCV (80-98) fL MCH (27-31) pg MCHC (32-36) % Plt Count (150-400) K/uL Neut % (Auto) (36-66) % Lymph % (Auto) (24-44) % [place] % (Auto) (2-6) % Eos % (Auto) (2-4) % Baso % (Auto) (0-1) % PT (9.5-12.0) sec INR (0.80-1.20) Sodium (140-148) mmol/L Potassium (3.6-5.2) mmol/L Chloride (100-108) mmol/L Carbon Dioxide (21-32) mmol/L Anion Gap (5.0-14.0) mmol/L BUN (7-18) mg/dL Creatinine (0.6-1.0) mg/dL Est Cr Clr Drug Dosing mL/min Estimated GFR (MDRD) (>60) Glucose (74-106) mg/dL Lactic Acid 24.5 H (0.4-2.0) mmol/L Calcium (8.5-10.1) mg/dL Magnesium (1.8-2.4) mg/dL Total Bilirubin (0.2-1.0) mg/dL AST (15-37) U/L ALT (12-78) U/L Alkaline Phosphatase (46-116) U/L Ammonia (11-32) mmol/L Troponin I (0.000-0.056) ng/mL Total Protein (6.4-8.2) g/dL Albumin (3.4-5.0) g/dL Globulin (2.3-3.5) g/dL Albumin/Globulin Ratio (1.2-2.2) Lipase (73-393) U/L TSH, Ultra Sensitive (0.358-3.740) uIU/mL Urine Color Urine Appearance Urine pH (4.5-8.0) Ur Specific [place] (1.008-1.030) Urine Protein (NEGATIVE) mg/dL Urine Glucose (UA) (NEGATIVE) mg/dL Urine Ketones (NEGATIVE) mg/dL Urine Occult Blood (NEGATIVE) Urine Nitrite (NEGATIVE) Urine Bilirubin (NEGATIVE) Urine Urobilinogen (NORMAL) mg/dL Ur Leukocyte Esterase (NEGATIVE) Urine RBC (0-5) Urine WBC (0-5) Ur Epithelial Cells Amorphous Sediment Urine Bacteria Urine Mucus Urine Opiates Screen (NEGATIVE) Ur Oxycodone Screen (NEGATIVE) Urine Methadone Screen (NEGATIVE) Ur Propoxyphene Screen (NEGATIVE) Ur Barbiturates Screen (NEGATIVE) Ur Tricyclics Screen (NEGATIVE) Ur Phencyclidine Scrn (NEGATIVE) Ur Amphetamine Screen (NEGATIVE) U Methamphetamines Scrn (NEGATIVE) Urine MDMA Screen (NEGATIVE) U Benzodiazepines Scrn (NEGATIVE) U Cocaine Metab Screen (NEGATIVE) U Marijuana (THC) Screen (NEGATIVE) Ethyl Alcohol mg/dL Med Orders - Current: Current Medications Acetaminophen (Tylenol) 650 mg PO Q4H PRN PRN Reason: Pain (Mild 1-3)/fever Albuterol (Proventil Neb Soln) 2.5 mg NEB Q4H PRN PRN Reason: Shortness Of Breath/wheezing Last Admin: 03/21/19 04:44 Dose: 2.5 mg Folic Acid (Folic Acid) 1 mg PO DAILY [facility] Gabapentin (Neurontin) 400 mg PO TID [facility] Sodium Chloride (Normal Saline) 1,000 mls @ 125 mls/hr IV ASDIRECTED MENDEZ Last Admin: 03/21/19 07:35 Dose: 125 mls/hr Insulin Human Lispro (Humalog) 0 unit SUBCUT QIDACANDBED [facility]; Protocol Last Admin: 03/21/19 08:21 Dose: 6 units Lactulose (Chronulac) 20 gm NGTUBE ONETIME ONE Stop: 03/21/19 09:46 Lorazepam (Ativan) 0.5 mg IVPUSH Q4H PRN PRN Reason: Nausea/Vomiting Lorazepam (Ativan) 0 mg PO ASDIRECTED MENDEZ; Protocol Last Admin: 03/21/19 04:58 Dose: 1 mg Lorazepam (Ativan) 0 mg IV ASDIRECTED MENDEZ; Protocol Magnesium Hydroxide (Milk Of Magnesia) 30 ml PO Q12H PRN PRN Reason: Constipation Melatonin (Melatonin) 9 mg PO BEDTIME MENDEZ Methylprednisolone Sodium Succinate (Solu-Medrol) 32 mg IVPUSH DAILY [facility] Morphine Sulfate (Morphine) 2 mg IVPUSH Q2H PRN PRN Reason: Pain (severe 7-10) Ondansetron HCl (Zofran Odt) 4 mg PO Q6H PRN PRN Reason: Nausea able to take PO Ondansetron HCl (Zofran) 4 mg IV Q6H PRN PRN Reason: Nausea/Vomiting Senna/Docusate Sodium (Senna Plus) 1 tab PO BID PRN PRN Reason: Constipation Sodium Chloride (Saline Flush) 10 ml FLUSH ASDIRECTED PRN PRN Reason: Keep Vein Open Last Admin: 03/20/19 23:09 Dose: 10 ml Thiamine HCl (Vitamin B-1) 100 mg PO DAILY [facility]Z Discontinued Medications Dextrose/Water (Dextrose 50% In Water) 50 ml IVPUSH ONETIME ONE Stop: 03/21/19 09:31 Last Admin: 03/21/19 09:27 Dose: 50 ml Gabapentin (Neurontin) 300 mg PO ONETIME ONE Stop: 03/20/19 23:30 Last Admin: 03/20/19 23:54 Dose: 300 mg Lactated Ringer's (Ringers, Lactated) 1,000 mls @ 250 mls/hr IV BOLUS ONE Stop: 03/21/19 02:53 Last Admin: 03/20/19 23:05 Dose: 250 mls/hr Multivitamins/Minerals 10 ml/Thiamine HCl 100 mg/ Folic Acid 1 mg/ Magnesium Sulfate 2 gm/ Sodium Chloride 1,015.2 mls @ 250 mls/hr IV ONETIME ONE Stop: 03/21/19 05:42 Last Admin: 03/21/19 03:35 Dose: 250 mls/hr Phytonadione 5 mg/ Sodium (Chloride) 50.5 mls @ 100 mls/hr IV NOW ONE Stop: 03/21/19 02:09 Last Admin: 03/21/19 02:43 Dose: 100 mls/hr Sodium Chloride (Normal Saline) 500 mls @ 500 mls/hr IV .BOLUS ONE Stop: 03/21/19 04:11 Last Admin: 03/21/19 03:35 Dose: 500 mls/hr Sodium Chloride (Normal Saline) 1,000 mls @ 999 mls/hr IV ASDIRECTED ONE Stop: 03/21/19 09:45 Insulin Human Lispro (Humalog) 10 unit SUBCUT ONETIME ONE Stop: 03/21/19 09:31 Lactulose (Chronulac) 100 gm RECTAL ONETIME ONE Stop: 03/21/19 01:03 Last Admin: 03/21/19 02:37 Dose: 100 gm Lactulose (Chronulac) Confirm Administered Dose 50 gm .ROUTE .STK-MED ONE Stop: 03/21/19 02:07 Last Admin: 03/21/19 02:39 Dose: Not Given Lactulose (Chronulac) Confirm Administered Dose 50 gm .ROUTE .STK-MED ONE Stop: 03/21/19 02:11 Last Admin: 03/21/19 02:39 Dose: Not Given Lactulose (Chronulac) 20 gm PO ONETIME ONE Stop: 03/21/19 07:01 Last Admin: 03/21/19 07:05 Dose: 20 gm Lorazepam (Ativan) 1 mg IVPUSH ONETIME ONE Stop: 03/20/19 23:29 Last Admin: 03/20/19 23:53 Dose: 1 mg Pantoprazole Sodium (Protonix Iv) 40 mg IV ONETIME ONE Stop: 03/21/19 01:40 Last Admin: 03/21/19 02:38 Dose: 40 mg Sodium Bicarbonate (Sodium Bicarbonate 8.4%) 100 meq IV ONETIME ONE Stop: 03/21/19 09:31 - Exam Quality Assessment: Denies: Supplemental Oxygen General: Reports: Lethargic. Denies: Alert, Cooperative HEENT: Reports: Pupils Equal Lungs: Reports: Clear to Auscultation. Denies: Normal Respiratory Effort ( Tachypnea) Cardiovascular: Reports: Regular Rhythm, No Murmurs, Bradycardia GI/Abdominal Exam: Non-Tender, Distended. No: Soft (firm) Extremities: Pedal Edema. No: Increased Warmth Skin: Reports: Warm, Dry Psy/Mental Status: Denies: Alert, Agitated *Q Meaningful Use (DIS) - VTE *Q VTE Pharmacological Contraindications *Q: Thrombocytopenia
[2019-03-21] MEDS ORDERED: Norepinephrine 4 MG in Dextrose 5% in Water 246 ML IV SCH ×2 (10:15)
[2019-03-21 13:08] VITALS: BP 90/39
[2019-03-21] MEDS ORDERED: Melatonin 3 MG Tab PO SCH (21:00)
== END 2019-03-21 10:44 | DRG 896 ==
LOC: JP.ED 21:38 → JP.ICU 03-21 00:31
PROVIDERS: ADMIT Internal Medicine; ATTEND Internal Medicine
DX: F10.231 Alcohol dependence with withdrawal delirium (principal); K72.00 Acute and subacute hepatic failure without coma; K76.7 Hepatorenal syndrome; N17.9 Acute kidney failure, unspecified; D68.9 Coagulation defect, unspecified; E87.2 Acidosis; E87.1 Hypo-osmolality and hyponatremia; I10 Essential (primary) hypertension; K70.31 Alcoholic cirrhosis of liver with ascites; E11.65 Type 2 diabetes mellitus with hyperglycemia; E11.40 Type 2 diabetes mellitus with diabetic neuropathy, unspecified; R41.0 Disorientation, unspecified; Z79.4 Long term (current) use of insulin; Z96.41 Presence of insulin pump (external) (internal); D69.6 Thrombocytopenia, unspecified; Y90.7 Blood alcohol level of 200-239 mg/100 ml; F11.90 Opioid use, unspecified, uncomplicated; K70.11 Alcoholic hepatitis with ascites; E87.5 Hyperkalemia; K21.9 Gastro-esophageal reflux disease without esophagitis; M54.9 Dorsalgia, unspecified; G89.29 Other chronic pain; F41.9 Anxiety disorder, unspecified; Z88.8 Allergy status to other drugs, medicaments and biological substances; Z91.048 Other nonmedicinal substance allergy status; I87.2 Venous insufficiency (chronic) (peripheral); E66.9 Obesity, unspecified; Z68.28 Body mass index [BMI] 28.0-28.9, adult
CPT/HCPCS: 36415 ×2; 80053; 80305; 81001; 83605; 83690; 84443; 84484; 85025; 85610; A9270; G0480; J2060; J7120; 51702; 70450; 82140; 82962; 83735; 85027; 93005; 94640; 96361; 96374; 99285-25; A4216; C9113; J1815; J2920; J3411; J3430; J3475; J3490; J7030; J7040; J7050; J7060